=== PATIENT | male | born 1955 | race Two or more races ===

== ENCOUNTER 2020-03-26 07:18 | Outpatient (REF) | payer OTHER, SELFPAY ==
[2020-03-26 07:51] LABS: MANUAL DIFF FLAG NO
[2020-03-26 07:53] LABS: Basophils Percent Auto 0.7 % (0-2); Eosinophils Absolute Auto 0.1 X10*3/uL (0.0-0.4); Eosinophils Percent Auto 1.5 % (0-4); Hematocrit 46.6 % (42-52); Hemoglobin 15.7 g/dl (14.0-18.0); Lymphocytes Absolute Auto 1.9 X10*3/uL (1.2-4.9); Lymphocytes Percent Auto 46.9 % (20-40); Mean Corpuscular HGB Conc 33.7 g/dl (31.0-36.0); Mean Corpuscular Hemoglobin 31.7 pg (27.0-33.0); Mean Corpuscular Volume 94.1 fL (80-98); Mean Platelet Volume 10.2 fL (9.4-12.4); Monocytes Absolute Auto 0.3 X10*3/uL (0.1-1.2); Monocytes Percent Auto 7.5 % (2-11); Neutrophils Absolute Auto 1.7 X10*3/uL (2.0-8.3); Neutrophils Percent Auto 43.4 % (45-73); Platelet Count 189 X10*3/uL (160-400); Red Blood Count 4.95 X10*6/uL (4.60-5.80); Red Cell Distribution Width 12.7 % (11.0-16.0)
[2020-03-26 09:30] LABS: Alanine Aminotransferase 13 U/L (0-40); Albumin Level 4.6 g/dL (3.5-5.0); Alkaline Phosphatase 81 U/L (39-117); Anion Gap 11 (12-20); Aspartate Amino Transferase 17 U/L (5-37); Bilirubin Total 0.5 mg/dL (0.0-1.0); Blood Urea Nitrogen 19 mg/dL (9-16); Calcium 9.4 mg/dL (8.4-10.2); Carbon Dioxide 31 mmol/L (22-29); Chloride 104 mmol/L (96-108); Cholesterol 164 mg/dL; Estimated Glomerular Filt Rate > 60; Glucose Fasting 106 mg/dL (60-99); HDL Cholesterol 52 mg/dL; LDL Cholesterol Calculated 98 mg/dl; Potassium 4.6 mmol/l (3.3-5.1); Sodium 141 mmol/L (135-145); Total Protein 7.3 g/dL (6.5-8.0); Triglycerides 73 mg/dL
[2020-03-26 10:03] LABS: Prostate Specific Antigen 2.32 ng/mL (<0.05-4.0)
== END 2020-03-26 07:19 | disposition home or self-care (01) ==
LOC: HO.LAB 07:18
PROVIDERS: PCP Internal Medicine Medical Oncology; Visit Provider Internal Medicine Medical Oncology
DX: I10 Essential (primary) hypertension (principal); E78.5 Hyperlipidemia, unspecified; E66.3 Overweight
CPT/HCPCS: 36415; 80053; 80061; 84153; 85025

== ENCOUNTER 2020-06-26 07:07 | Outpatient (REF) | payer OTHER, SELFPAY ==
[2020-06-26 07:50] LABS: MANUAL DIFF FLAG NO
[2020-06-26 07:53] LABS: Hematocrit 47.2 % (42-52); Hemoglobin 15.8 g/dl (14.0-18.0); Imm Gran Abs Auto 0.01 X10*3/uL (0.00-0.03); Imm Gran Pct Auto 0.2 % (0.0-0.4); Lymphocytes Absolute Auto 1.5 X10*3/uL (1.2-4.9); Lymphocytes Percent Auto 37.2 % (20-40); Mean Corpuscular HGB Conc 33.5 g/dl (31.0-36.0); Mean Corpuscular Hemoglobin 31.3 pg (27.0-33.0); Mean Corpuscular Volume 93.7 fL (80-98); Mean Platelet Volume 10.4 fL (9.4-12.4); Monocytes Absolute Auto 0.6 X10*3/uL (0.1-1.2); Monocytes Percent Auto 15.5 % (2-11); Neutrophils Absolute Auto 1.8 X10*3/uL (2.0-8.3); Neutrophils Percent Auto 45.1 % (45-73); Platelet Count 161 X10*3/uL (160-400); Red Blood Count 5.04 X10*6/uL (4.60-5.80); Red Cell Distribution Width 12.6 % (11.0-16.0)
[2020-06-26 08:24] LABS: Alanine Aminotransferase 15 U/L (0-40); Albumin Level 4.5 g/dL (3.5-5.0); Alkaline Phosphatase 85 U/L (39-117); Anion Gap 13 (12-20); Aspartate Amino Transferase 18 U/L (5-37); Bilirubin Total 0.8 mg/dL (0.0-1.0); Blood Urea Nitrogen 18 mg/dL (9-16); Calcium 9.3 mg/dL (8.4-10.2); Carbon Dioxide 29 mmol/L (22-29); Chloride 104 mmol/L (96-108); Cholesterol 171 mg/dL; Estimated Glomerular Filt Rate > 60; Glucose Fasting 123 mg/dL (60-99); HDL Cholesterol 46 mg/dL; LDL Cholesterol Calculated 101 mg/dl; Potassium 4.5 mmol/L (3.3-5.1); Sodium 141 mmol/L (135-145); Total Protein 7.2 g/dL (6.5-8.0); Triglycerides 122 mg/dL
== END 2020-06-26 07:08 | disposition home or self-care (01) ==
LOC: HO.LAB 07:07
PROVIDERS: Visit Provider Internal Medicine Medical Oncology
DX: I10 Essential (primary) hypertension (principal); E78.5 Hyperlipidemia, unspecified; E66.3 Overweight
CPT/HCPCS: 36415; 80053; 80061; 85025

== ENCOUNTER 2020-10-17 11:25 | Emergency (ER) | payer OTHER, SELFPAY ==
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
[2020-10-17 11:30] VITALS: BP 163/92; PULSE 86; RESP 18; TEMP 36.6; O2SAT 98; BMI 28.8
[2020-10-17 13:09] VITALS: BP 151/94; PULSE 77; RESP 18; O2SAT 99
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
== END 2020-10-17 14:15 | disposition home or self-care (01) ==
PROVIDERS: Emergency Provider Emergency Medicine; PCP Internal Medicine Medical Oncology
DX: M79.602 Pain in left arm (principal); Z79.899 Other long term (current) drug therapy
CPT/HCPCS: 73030; 99283; 99284

== ENCOUNTER 2021-02-04 08:29 | Outpatient (REF) | payer OTHER, SELFPAY ==
[2021-02-04 08:39] LABS: MANUAL DIFF FLAG NO
[2021-02-04 10:00] LABS: Basophils Percent Auto 1.1 % (0-2); Eosinophils Absolute Auto 0.1 X10*3/uL (0.0-0.4); Eosinophils Percent Auto 1.6 % (0-4); Hematocrit 48.2 % (42.0-52.0); Hemoglobin 16.1 g/dl (14.0-18.0); Imm Gran Abs Auto 0.01 X10*3/uL (0.00-0.03); Imm Gran Pct Auto 0.3 % (0.0-0.4); Mean Corpuscular HGB Conc 33.4 g/dl (31.0-36.0); Mean Corpuscular Hemoglobin 31.4 pg (27.0-33.0); Mean Platelet Volume 10.8 fL (9.4-12.4); Monocytes Absolute Auto 0.3 X10*3/uL (0.1-1.2); Monocytes Percent Auto 9.1 % (2-11); Neutrophils Absolute Auto 1.4 x10*3/uL (2.0-8.3); Neutrophils Percent Auto 35.9 % (45-73); Platelet Count 186 X10*3/uL (160-400); Red Blood Count 5.13 X10*6/uL (4.60-5.80); Red Cell Distribution Width 12.3 % (11.0-16.0); White Blood Count 3.8 X10*3/uL (4.8-10.8)
[2021-02-04 10:31] LABS: Alanine Aminotransferase 14 U/L (0-40); Albumin Level 4.5 g/dL (3.5-5.0); Alkaline Phosphatase 84 U/L (39-117); Anion Gap 11 (12-20); Aspartate Amino Transferase 17 U/L (5-37); Bilirubin Total 0.7 mg/dL (0.0-1.0); Blood Urea Nitrogen 16 mg/dL (9-16); Calcium 9.7 mg/dL (8.4-10.2); Carbon Dioxide 29 mmol/L (22-29); Chloride 106 mmol/L (96-108); Cholesterol 168 mg/dL; Estimated Glomerular Filt Rate > 60; Glucose Fasting 115 mg/dL (60-99); HDL Cholesterol 49 mg/dL; LDL Cholesterol Calculated 99 mg/dl; Sodium 142 mmol/L (135-145); Total Protein 7.4 g/dL (6.5-8.0); Triglycerides 101 mg/dL
== END 2021-02-04 08:30 | disposition home or self-care (01) ==
LOC: HO.LAB 08:29
PROVIDERS: PCP Internal Medicine Medical Oncology; Visit Provider Internal Medicine Medical Oncology
DX: I10 Essential (primary) hypertension (principal); E78.5 Hyperlipidemia, unspecified; E66.3 Overweight
CPT/HCPCS: 36415; 80053; 80061; 85025

== ENCOUNTER 2021-07-08 09:24 | Day surgery (SDC) | payer OTHER, SELFPAY ==
[2021-07-04 10:32] VITALS: BMI 28.0
--- NOTE | 2021-07-07 08:31 | P.CONAN_ITS ---
Documented by User: Kiarra Hay NP 07/07/21 08:32 HPI - Anesthesia Eval Consult details Narrative: 66yo F for Colonoscopy [facility] Past Medical History Medical History High cholesterol HTN (hypertension) Surgical History Surgical History H/O colonoscopy Hx of tonsillectomy Social History Social History Alcohol intake: never Patient Tobacco Use Status: Former Tobacco user Are you DNR?: No Advance Directives: No Advance Directives Information Provided: Yes Nutrition Risks: No Nutritional Risk Meds Allergies Allergy/AdvReac Type Severity Reaction Status Date / Time No Known Allergies Allergy Verified 10/17/20 11:29 Home Medications Medication Instructions Recorded Confirmed Last Taken Type aspirin 81 mg tablet,delayed 81 mg PO DAILY 07/04/21 07/04/21 06/22/21 History release hydrochlorothiazide 12.5 mg capsule 1 cap PO QAM 07/04/21 07/04/21 Unknown History losartan 50 mg tablet 1 tab PO DAILY 07/04/21 07/04/21 07/08/21 History omega 7-nms-ddt-fish oil 1,000 mg 1 cap PO BID 07/04/21 07/08/21 06/22/21 History (120 mg-180 mg) capsule (Fish Oil) simvastatin 40 mg tablet 1 tab PO QPM 07/04/21 07/04/21 Unknown History Exam Exam Date and Time: July 07, 2021 0831 Height,Weight and Vital Signs: Height 5 ft 9.5 in Weight 87.543 kg Pertinent Lab Results Pertinent Lab Results: Laboratory Tests 02/04/21 02/04/21 08:36 08:36 WBC 3.8 L Hgb 16.1 Hct 48.2 Plt Count 186 Sodium 142 Potassium 4.0 Chloride 106 Carbon Dioxide 29 BUN 16 Creatinine 0.90 Assessment and Plan Assessment Anesthesia Assessment: Chart Reviewed Documented by User: Niharika Duarte MD 07/08/21 11:07 [facility] Past Medical History Medical History High cholesterol HTN (hypertension) Family History Family history of problems with anesthesia: No Surgical History Surgical History H/O colonoscopy Hx of tonsillectomy History of Problems with Anesthesia: No Social History Social History Alcohol intake: never Patient Tobacco Use Status: Former Tobacco user Are you DNR?: No Advance Directives: No Advance Directives Information Provided: Yes Nutrition Risks: No Nutritional Risk Meds Allergies Allergy/AdvReac Type Severity Reaction Status Date / Time No Known Allergies Allergy Verified 10/17/20 11:29 Home Medications Medication Instructions Recorded Confirmed Last Taken Type aspirin 81 mg tablet,delayed 81 mg PO DAILY 07/04/21 07/04/21 06/22/21 History release hydrochlorothiazide 12.5 mg capsule 1 cap PO QAM 07/04/21 07/04/21 Unknown History losartan 50 mg tablet 1 tab PO DAILY 07/04/21 07/04/21 07/08/21 History omega 6-scw-cap-fish oil 1,000 mg 1 cap PO BID 07/04/21 07/08/21 06/22/21 History (120 mg-180 mg) capsule (Fish Oil) simvastatin 40 mg tablet 1 tab PO QPM 07/04/21 07/04/21 Unknown History Exam Height,Weight and Vital Signs: Height 5 ft 9.5 in Weight 87.543 kg Vital Signs Temp Pulse Resp BP Pulse Ox 07/08/21 10:15 143/94 H 07/08/21 09:40 98.3 F 89 18 174/100 H 98 Airway Mallampati Class: II TM Dist: >3cm Neck ROM: Full Loose/Missing/Broken Teeth: No Heart: RRR Lungs: CTAB Assessment and Plan Assessment Anesthesia Assessment: Anesthesia Plan Discussed Final Anesthetic Review Family History of Problems with Anesthesia: No History of Problems with Anesthesia: No NPO: Yes ASA Class: II Final Preanesthetic Review: No Changes in Pt Med Stat, Meds/Allgs Chart Reviewed, Consent Obtained/Reviewed and Anes Risks/Benef Reviewed Patient Risk: Low Procedure Risk: Low Assessment/Block/Sedation in SS: Assess/Block/Sedation-SS Anesthetic Plan Anesthetic Plan: MAC: Disposition: Standard PACU
[2021-07-08 09:40] VITALS: BP 174/100; PULSE 89; RESP 18; TEMP 36.8; O2SAT 98
[2021-07-08] MEDS: Lactated Ringers 1,000 ML 100 ML IVCONT (10:13)
[2021-07-08 10:15] VITALS: BP 143/94
[2021-07-08 12:38] VITALS: BP 118/70; PULSE 80; RESP 16; TEMP 37.1; O2SAT 96
--- NOTE | 2021-07-08 12:43 | PM.OP ---
Brief Operative Note Date of Service: 07/08/21 Pre-op diagnosis: Screening Post-op diagnosis: other (Colon polyps) Procedure: Colonoscopy to cecum and TI with hot snare polypectomy, cold snare polypectomy at 50cm, and bx/removal of polyp in transverse colon Surgeon: Blu Willis Anesthesia: MAC Was an Real Estate Loan Officer used for this Procedure?: No Estimated blood loss (mL): 2.0 Pathology: other (A. Transverse colon polyp B. Ascending colon polyps C. Polyps at 60cm) Condition: stable Disposition: PACU
[2021-07-08 12:53] VITALS: BP 141/87; PULSE 70; RESP 18; O2SAT 99
[2021-07-08 13:08] VITALS: BP 154/94; PULSE 70; RESP 20; TEMP 37.2; O2SAT 100
--- NOTE | 2021-07-09 00:15 | OP_ITS ---
SURGEON: Blu Willis MD INDICATIONS: The patient presents for evaluation of colorectal cancer screening and personal history of tubular adenomas of the colon. Full consent has been obtained from him for this, including risks of bleeding and perforation. PREOPERATIVE DIAGNOSIS: POSTOPERATIVE DIAGNOSIS: PROCEDURE PERFORMED: Colonoscopy to the cecum and terminal ileum with hot snare polypectomy, cold snare polypectomy, and biopsy removal of polyp. ESTIMATED BLOOD LOSS: COMPLICATIONS: ANESTHESIA: ASSISTANTS: SPECIMENS: PREOPERATIVE DIAGNOSES: Personal history of tubular adenoma of the colon, colorectal cancer screening. POSTOPERATIVE DIAGNOSES: Personal history of tubular adenoma of the colon, colorectal cancer screening, colon polyps, diverticulosis and internal hemorrhoids. PREP MEDICATION USED: Monitored anesthesia care. DESCRIPTION OF PROCEDURE: The patient was placed in the left lateral decubitus position. The digital rectal exam revealed no abnormalities. The Olympus video pediatric colonoscope was then entered into the rectum and advanced easily to the cecum. Once in the cecum, I did identify normal-appearing cecal pouch with appendiceal orifice and a normal-appearing ileocecal valve. The terminal ileum was cannulated and appeared normal. The scope was withdrawn back in the colon. The entire cecum and ileocecal valve appeared normal. The scope was slowly withdrawn assessing all mucosal surfaces carefully. Preparation was excellent. In the ascending colon, there were 2 polyps. One was approximately 10-12 mm in diameter and was removed by hot snare polypectomy and recovered by suction. The other polyp was approximately 8 mm in diameter and removed by hot snare polypectomy and recovered by suction. Both polypectomy sites appeared clean, without any sign of residual polyp nor bleeding. In the transverse colon was an approximately 4 mm polyp, which was removed completely with the cold biopsy forceps. At 60 cm were 2 polyps. One was approximately 5 mm in diameter and was removed by cold snare polypectomy. The other polyp was approximately 8 mm in diameter and was removed by hot snare polypectomy. Both polyps were recovered by suction. The polypectomy site was appeared clean, without any sign of residual polyp nor bleeding. I did not visualize any other polyps, colitis, nor angiodysplasia. There was a moderate amount of sigmoid diverticulosis. In the rectum, the scope was retroflexed visualizing internal hemorrhoids, but no other pathology. The rectal mucosa appeared normal. Scope was straightened and withdrawn from the patient. He tolerated the procedure well and was returned to the recovery area in stable condition. IMPRESSION: 1. Colon polyps. 2. Diverticulosis. 3. Internal hemorrhoids. PLAN: The results of the pathology will be checked. I would recommend a repeat colonoscopy in 5 years for further surveillance. He was advised not to use any aspirin, NSAIDs, nor fish oil for 1 week. MD MICHAEL Valdez/BRITTANY / [phone]
== END 2021-07-08 13:30 | disposition home or self-care (01) ==
PROVIDERS: PCP Internal Medicine Medical Oncology; Visit Provider Internal Medicine
PROC: 0DJD8ZZ Inspection of Lower Intestinal Tract, Via Natural or Artificial Opening Endoscopic (ICD-10-PCS; CPT 45378; principal; 2021-07-08 10:50)
DX: Z12.11 Encounter for screening for malignant neoplasm of colon (principal); Z86.010 Personal history of colon polyps; D12.2 Benign neoplasm of ascending colon; D12.4 Benign neoplasm of descending colon; K63.5 Polyp of colon; K57.30 Diverticulosis of large intestine without perforation or abscess without bleeding; K64.8 Other hemorrhoids; I10 Essential (primary) hypertension; E78.5 Hyperlipidemia, unspecified; Z79.82 Long term (current) use of aspirin; Z79.899 Other long term (current) drug therapy
CPT/HCPCS: 45385; 45380; 88305

== ENCOUNTER 2021-08-05 08:01 | Outpatient (REF) | payer OTHER, SELFPAY ==
[2021-08-05 08:28] LABS: MANUAL DIFF FLAG NO
[2021-08-05 08:59] LABS: Basophils Percent Auto 0.6 % (0-2); Eosinophils Absolute Auto 0.1 X10*3/uL (0.0-0.4); Eosinophils Percent Auto 1.4 % (0-4); Hematocrit 46.2 % (42.0-52.0); Hemoglobin 15.7 g/dl (14.0-18.0); Lymphocytes Absolute Auto 2.1 X10*3/uL (1.2-4.9); Mean Corpuscular Hemoglobin 31.8 pg (27.0-33.0); Mean Corpuscular Volume 93.5 fL (80.0-98.0); Mean Platelet Volume 10.5 fL (9.4-12.4); Monocytes Absolute Auto 0.3 X10*3/uL (0.1-1.2); Monocytes Percent Auto 8.3 % (2-11); Neutrophils Absolute Auto 1.1 x10*3/uL (2.0-8.3); Neutrophils Percent Auto 30.7 % (45-73); Platelet Count 160 X10*3/uL (160-400); Red Blood Count 4.94 X10*6/uL (4.60-5.80); Red Cell Distribution Width 12.5 % (11.0-16.0); White Blood Count 3.5 X10*3/uL (4.8-10.8)
[2021-08-05 09:28] LABS: Alanine Aminotransferase 13 U/L (0-40); Albumin Level 4.4 g/dL (3.5-5.0); Alkaline Phosphatase 72 U/L (39-117); Anion Gap 12 (12-20); Aspartate Amino Transferase 15 U/L (5-37); Blood Urea Nitrogen 12 mg/dL (9-16); Calcium 9.9 mg/dL (8.4-10.2); Carbon Dioxide 28 mmol/L (22-29); Chloride 105 mmol/L (96-108); Cholesterol 168 mg/dL; Estimated Glomerular Filt Rate > 60; Glucose Fasting 109 mg/dL (60-99); HDL Cholesterol 49 mg/dL; LDL Cholesterol Calculated 95 mg/dl; Potassium 4.6 mmol/L (3.3-5.1); Sodium 140 mmol/L (135-145); Total Protein 7.2 g/dL (6.5-8.0); Triglycerides 121 mg/dL
[2021-08-05 09:39] LABS: Prostate Specific Antigen 1.01 ng/mL (<0.05-4.0)
== END 2021-08-05 08:02 | disposition home or self-care (01) ==
LOC: HO.LAB 08:01
PROVIDERS: PCP Internal Medicine Medical Oncology; Visit Provider Internal Medicine Medical Oncology
DX: D72.819 Decreased white blood cell count, unspecified (principal); E78.5 Hyperlipidemia, unspecified; E66.3 Overweight; Z12.5 Encounter for screening for malignant neoplasm of prostate
CPT/HCPCS: 36415; 80053; 80061; 84153; 85025

== ENCOUNTER 2021-12-03 08:28 | Outpatient (REF) | payer OTHER, SELFPAY ==
[2021-12-03 08:47] LABS: MANUAL DIFF FLAG NO
[2021-12-03 09:23] LABS: Basophils Absolute Auto 0.1 X10*3/uL (0.0-0.2); Basophils Percent Auto 1.4 % (0-2); Eosinophils Percent Auto 1.1 % (0-4); Hematocrit 45.8 % (42.0-52.0); Hemoglobin 15.7 g/dl (14.0-18.0); Lymphocytes Absolute Auto 1.7 X10*3/uL (1.2-4.9); Lymphocytes Percent Auto 49.1 % (20-40); Mean Corpuscular HGB Conc 34.3 g/dl (31.0-36.0); Mean Corpuscular Hemoglobin 32.2 pg (27.0-33.0); Mean Corpuscular Volume 93.9 fL (80.0-98.0); Mean Platelet Volume 11.2 fL (9.4-12.4); Monocytes Absolute Auto 0.3 X10*3/uL (0.1-1.2); Neutrophils Absolute Auto 1.4 x10*3/uL (2.0-8.3); Neutrophils Percent Auto 40.4 % (45-73); Platelet Count 173 X10*3/uL (160-400); Red Blood Count 4.88 X10*6/uL (4.60-5.80); Red Cell Distribution Width 12.3 % (11.0-16.0); White Blood Count 3.5 X10*3/uL (4.8-10.8)
[2021-12-03 09:54] LABS: Alanine Aminotransferase 14 U/L (0-40); Albumin Level 4.5 g/dL (3.5-5.0); Alkaline Phosphatase 73 U/L (39-117); Anion Gap 14 (12-20); Aspartate Amino Transferase 17 U/L (5-37); Bilirubin Total 0.6 mg/dL (0.0-1.0); Blood Urea Nitrogen 17 mg/dL (9-16); Calcium 9.4 mg/dL (8.4-10.2); Carbon Dioxide 27 mmol/L (22-29); Chloride 106 mmol/L (96-108); Cholesterol 169 mg/dL; Estimated Glomerular Filt Rate > 60; Glucose Fasting 107 mg/dL (60-99); HDL Cholesterol 50 mg/dL; LDL Cholesterol Calculated 99 mg/dl; Potassium 4.6 mmol/L (3.3-5.1); Sodium 142 mmol/L (135-145); Total Protein 7.2 g/dL (6.5-8.0); Triglycerides 101 mg/dL
[2021-12-07 14:47] LABS: Neutrophil Cyto Ab Screen NEGATIVE (NEGATIVE)
== END 2021-12-03 08:29 | disposition home or self-care (01) ==
LOC: HO.LAB 08:28
PROVIDERS: PCP Internal Medicine Medical Oncology; Visit Provider Internal Medicine Medical Oncology
DX: D72.819 Decreased white blood cell count, unspecified (principal); E78.5 Hyperlipidemia, unspecified; E66.3 Overweight
CPT/HCPCS: 36415; 80053; 80061; 85025; 86036; 86037

== ENCOUNTER 2022-04-15 08:07 | Outpatient (REF) | payer OTHER, SELFPAY ==
[2022-04-15 08:19] LABS: MANUAL DIFF FLAG NO
[2022-04-15 08:31] LABS: Basophils Percent Auto 0.8 % (0-2); Hematocrit 46.4 % (42.0-52.0); Hemoglobin 15.7 g/dl (14.0-18.0); Lymphocytes Absolute Auto 1.8 X10*3/uL (1.2-4.9); Lymphocytes Percent Auto 45.5 % (20-40); Mean Corpuscular HGB Conc 33.8 g/dl (31.0-36.0); Mean Corpuscular Hemoglobin 31.9 pg (27.0-33.0); Mean Corpuscular Volume 94.3 fL (80.0-98.0); Mean Platelet Volume 10.6 fL (9.4-12.4); Monocytes Absolute Auto 0.4 X10*3/uL (0.1-1.2); Monocytes Percent Auto 9.3 % (2-11); Neutrophils Absolute Auto 1.7 x10*3/uL (2.0-8.3); Neutrophils Percent Auto 43.4 % (45-73); Platelet Count 176 X10*3/uL (160-400); Red Blood Count 4.92 X10*6/uL (4.60-5.80); Red Cell Distribution Width 12.3 % (11.0-16.0); White Blood Count 3.9 X10*3/uL (4.8-10.8)
[2022-04-15 09:05] LABS: Alanine Aminotransferase 15 U/L (0-40); Albumin Level 4.5 g/dL (3.5-5.0); Alkaline Phosphatase 71 U/L (39-117); Anion Gap 14 (12-20); Aspartate Amino Transferase 17 U/L (5-37); Blood Urea Nitrogen 21 mg/dL (9-16); Calcium 9.7 mg/dL (8.4-10.2); Carbon Dioxide 27 mmol/L (22-29); Chloride 106 mmol/L (96-108); Cholesterol 163 mg/dL; Estimated Glomerular Filt Rate > 60; Glucose Fasting 121 mg/dL (60-99); HDL Cholesterol 53 mg/dL; LDL Cholesterol Calculated 96 mg/dl; Potassium 4.7 mmol/L (3.3-5.1); Sodium 142 mmol/L (135-145); Total Protein 7.1 g/dL (6.5-8.0); Triglycerides 70 mg/dL
== END 2022-04-15 08:08 | disposition home or self-care (01) ==
LOC: HO.LAB 08:07
PROVIDERS: PCP Internal Medicine Medical Oncology; Visit Provider Internal Medicine Medical Oncology
DX: Z12.5 Encounter for screening for malignant neoplasm of prostate (principal); D72.819 Decreased white blood cell count, unspecified; E78.5 Hyperlipidemia, unspecified; N40.0 Benign prostatic hyperplasia without lower urinary tract symptoms
CPT/HCPCS: 36415; 80053; 80061; 84153; 85025

== ENCOUNTER 2022-07-14 09:24 | Outpatient (REF) | payer OTHER, SELFPAY ==
[2022-07-14 09:40] LABS: MANUAL DIFF FLAG NO
[2022-07-14 09:49] LABS: Basophils Percent Auto 0.7 % (0-2); Eosinophils Absolute Auto 0.1 X10*3/uL (0.0-0.4); Eosinophils Percent Auto 1.7 % (0-4); Hematocrit 44.4 % (42.0-52.0); Hemoglobin 15.3 g/dl (14.0-18.0); Imm Gran Abs Auto 0.01 X10*3/uL (0.00-0.03); Imm Gran Pct Auto 0.2 % (0.0-0.4); Mean Corpuscular HGB Conc 34.5 g/dl (31.0-36.0); Mean Corpuscular Hemoglobin 32.3 pg (27.0-33.0); Mean Corpuscular Volume 93.9 fL (80.0-98.0); Monocytes Absolute Auto 0.4 X10*3/uL (0.1-1.2); Monocytes Percent Auto 8.3 % (2-11); Neutrophils Absolute Auto 1.8 x10*3/uL (2.0-8.3); Neutrophils Percent Auto 42.1 % (45-73); Platelet Count 169 X10*3/uL (160-400); Red Blood Count 4.73 X10*6/uL (4.60-5.80); Red Cell Distribution Width 12.3 % (11.0-16.0); White Blood Count 4.2 X10*3/uL (4.8-10.8)
[2022-07-14 10:14] LABS: Alanine Aminotransferase 13 U/L (0-40); Albumin Level 4.2 g/dL (3.5-5.0); Alkaline Phosphatase 70 U/L (39-117); Anion Gap 8 (12-20); Aspartate Amino Transferase 16 U/L (5-37); Bilirubin Total 0.7 mg/dL (0.0-1.0); Blood Urea Nitrogen 17 mg/dL (9-16); Carbon Dioxide 28 mmol/L (22-29); Chloride 110 mmol/L (96-108); Cholesterol 156 mg/dL; Estimated Glomerular Filt Rate > 60; Glucose Random 107 mg/dL (60-115); HDL Cholesterol 51 mg/dL; LDL Cholesterol Calculated 92 mg/dl; Potassium 4.1 mmol/L (3.3-5.1); Sodium 142 mmol/L (135-145); Total Protein 6.6 g/dL (6.5-8.0); Triglycerides 67 mg/dL
== END 2022-07-14 09:25 | disposition home or self-care (01) ==
LOC: HO.LAB 09:24
PROVIDERS: PCP Internal Medicine Medical Oncology; Visit Provider Internal Medicine Medical Oncology
DX: I10 Essential (primary) hypertension (principal); E78.5 Hyperlipidemia, unspecified; D72.819 Decreased white blood cell count, unspecified
CPT/HCPCS: 36415; 80053; 80061; 85025

== ENCOUNTER 2022-11-17 09:30 | Outpatient (REF) | payer OTHER, SELFPAY ==
[2022-11-17 09:44] LABS: MANUAL DIFF FLAG NO
[2022-11-17 10:01] LABS: Basophils Percent Auto 0.8 % (0-2); Eosinophils Absolute Auto 0.1 X10*3/uL (0.0-0.4); Eosinophils Percent Auto 1.3 % (0-4); Hematocrit 44.6 % (42.0-52.0); Hemoglobin 15.2 g/dl (14.0-18.0); Lymphocytes Absolute Auto 2.2 X10*3/uL (1.2-4.9); Lymphocytes Percent Auto 55.7 % (20-40); Mean Corpuscular HGB Conc 34.1 g/dl (31.0-36.0); Mean Corpuscular Hemoglobin 31.9 pg (27.0-33.0); Mean Corpuscular Volume 93.7 fL (80.0-98.0); Mean Platelet Volume 10.4 fL (9.4-12.4); Monocytes Absolute Auto 0.3 X10*3/uL (0.1-1.2); Monocytes Percent Auto 8.1 % (2-11); Neutrophils Absolute Auto 1.3 x10*3/uL (2.0-8.3); Neutrophils Percent Auto 34.1 % (45-73); Platelet Count 160 X10*3/uL (160-400); Red Blood Count 4.76 X10*6/uL (4.60-5.80); Red Cell Distribution Width 12.3 % (11.0-16.0); White Blood Count 3.9 X10*3/uL (4.8-10.8)
[2022-11-17 11:22] LABS: Alanine Aminotransferase 10 U/L (0-40); Albumin Level 4.3 g/dL (3.5-5.0); Alkaline Phosphatase 67 U/L (39-117); Anion Gap 12 (12-20); Aspartate Amino Transferase 14 U/L (5-37); Bilirubin Total 0.7 mg/dL (0.0-1.0); Blood Urea Nitrogen 20 mg/dL (9-16); Calcium 9.3 mg/dL (8.4-10.2); Carbon Dioxide 28 mmol/L (22-29); Chloride 107 mmol/L (96-108); Cholesterol 157 mg/dL (<200); Estimated Glomerular Filt Rate > 60; Glucose Random 106 mg/dL (60-115); HDL Cholesterol 53 mg/dL (>40); LDL Cholesterol Calculated 87 mg/dL (<100); Sodium 143 mmol/L (135-145); Total Protein 6.9 g/dL (6.5-8.0); Triglycerides 89 mg/dL (<150)
[2022-11-20 11:19] LABS: Free Prostate Spec Ag 0.5 ng/mL; Percent Free Prostate Spec Ag 50 % (calc) (>25)
== END 2022-11-17 09:31 | disposition home or self-care (01) ==
LOC: HO.LAB 09:30
PROVIDERS: PCP Internal Medicine Medical Oncology; Visit Provider Internal Medicine Medical Oncology
DX: Z00.00 Encounter for general adult medical examination without abnormal findings (principal); Z12.5 Encounter for screening for malignant neoplasm of prostate; D72.819 Decreased white blood cell count, unspecified; E78.5 Hyperlipidemia, unspecified; I10 Essential (primary) hypertension
CPT/HCPCS: 36415; 80053; 80061; 84154; 85025

== ENCOUNTER 2022-11-24 10:49 | Outpatient (REF) | payer OTHER, SELFPAY ==
--- NOTE | ~2022-11-24 | XR_ITS ---
EXAMINATION: XR LUMBOSACRAL SPINE WITH OBLIQUES CLINICAL INFORMATION: Left leg pain COMPARISON: None available. TECHNIQUE: 5 views of the lumbar spine FINDINGS: 5 nonrib-bearing lumbar-type vertebral bodies. No acute visible fracture or dislocation. Moderate multilevel degenerative changes greatest at L1-L2 with robust anterior osteophyte, disc space narrowing, and lower lumbar spine facet arthropathy. Vertebral body heights and disc spaces are otherwise maintained. Posterior elements are intact. Paraspinal soft tissues are unremarkable visualized bowel gas is unremarkable. Pelvic phleboliths are noted. XR/XR lumbar spine 4V min IMPRESSION: 1. No acute visible fracture or dislocation. 2. Moderate multilevel degenerative changes greatest at L1-L2.
== END 2022-11-24 10:50 | disposition home or self-care (01) ==
LOC: HO.XRAY 10:49
PROVIDERS: PCP Internal Medicine Medical Oncology; Visit Provider Internal Medicine Medical Oncology
DX: M79.605 Pain in left leg (principal); M47.816 Spondylosis without myelopathy or radiculopathy, lumbar region
CPT/HCPCS: 72110

== ENCOUNTER 2023-07-28 07:32 | Outpatient (REF) | payer OTHER, SELFPAY ==
[2023-07-28 07:52] LABS: MANUAL DIFF FLAG NO
[2023-07-28 08:42] LABS: Basophils Percent Auto 0.6 % (0-2); Eosinophils Absolute Auto 0.1 X10*3/uL (0.0-0.4); Eosinophils Percent Auto 1.6 % (0-4); Hematocrit 45.9 % (42.0-52.0); Hemoglobin 15.6 g/dl (14.0-18.0); Imm Gran Abs Auto 0.01 X10*3/uL (0.00-0.03); Imm Gran Pct Auto 0.3 % (0.0-0.4); Lymphocytes Absolute Auto 1.7 X10*3/uL (1.2-4.9); Lymphocytes Percent Auto 54.6 % (20-40); Mean Corpuscular Volume 94.3 fL (80.0-98.0); Mean Platelet Volume 10.5 fL (9.4-12.4); Monocytes Absolute Auto 0.3 X10*3/uL (0.1-1.2); Monocytes Percent Auto 8.5 % (2-11); Neutrophils Absolute Auto 1.1 x10*3/uL (2.0-8.3); Neutrophils Percent Auto 34.4 % (45-73); Platelet Count 170 X10*3/uL (160-400); Red Blood Count 4.87 X10*6/uL (4.60-5.80); Red Cell Distribution Width 12.4 % (11.0-16.0); White Blood Count 3.2 X10*3/uL (4.8-10.8)
[2023-07-28 09:23] LABS: Alanine Aminotransferase 14 U/L (0-40); Albumin Level 4.3 g/dL (3.5-5.0); Alkaline Phosphatase 76 U/L (39-117); Anion Gap 12 (12-20); Aspartate Amino Transferase 16 U/L (5-37); Bilirubin Total 0.7 mg/dL (0.0-1.0); Blood Urea Nitrogen 17 mg/dL (9-16); Calcium 9.5 mg/dL (8.4-10.2); Carbon Dioxide 29 mmol/L (22-29); Chloride 106 mmol/L (96-108); Cholesterol 146 mg/dL (<200); Estimated Glomerular Filt Rate > 60; Glucose Fasting 110 mg/dL (60-99); HDL Cholesterol 48 mg/dL (>40); LDL Cholesterol Calculated 80 mg/dL (<100); Sodium 143 mmol/L (135-145); Total Protein 7.1 g/dL (6.5-8.0); Triglycerides 94 mg/dL (<150)
[2023-07-28 09:42] LABS: Prostate Specific Antigen 1.24 ng/mL (<0.05-4.0)
== END 2023-07-28 07:33 | disposition home or self-care (01) ==
LOC: HO.LAB 07:32
PROVIDERS: PCP Internal Medicine Medical Oncology; Visit Provider Internal Medicine Medical Oncology
DX: Z12.5 Encounter for screening for malignant neoplasm of prostate (principal); N40.0 Benign prostatic hyperplasia without lower urinary tract symptoms; E66.3 Overweight; E78.5 Hyperlipidemia, unspecified
CPT/HCPCS: 36415; 80053; 80061; 84153; 85025

== ENCOUNTER 2024-03-22 07:37 | Outpatient (REF) | payer OTHER, SELFPAY ==
[2024-03-22 07:49] LABS: MANUAL DIFF FLAG NO
[2024-03-22 09:35] LABS: Basophils Percent Auto 1.1 % (0-2); Eosinophils Absolute Auto 0.1 X10*3/uL (0.0-0.4); Eosinophils Percent Auto 1.7 % (0-4); Hematocrit 46.3 % (42.0-52.0); Imm Gran Abs Auto 0.01 X10*3/uL (0.00-0.03); Imm Gran Pct Auto 0.3 % (0.0-0.4); Lymphocytes Absolute Auto 1.7 X10*3/uL (1.2-4.9); Lymphocytes Percent Auto 46.8 % (20-40); Mean Corpuscular HGB Conc 34.6 g/dl (31.0-36.0); Mean Corpuscular Volume 92.6 fL (80.0-98.0); Mean Platelet Volume 10.7 fL (9.4-12.4); Monocytes Absolute Auto 0.4 X10*3/uL (0.1-1.2); Monocytes Percent Auto 10.5 % (2-11); Neutrophils Absolute Auto 1.4 x10*3/uL (2.0-8.3); Neutrophils Percent Auto 39.6 % (45-73); Platelet Count 197 X10*3/uL (160-400); Red Cell Distribution Width 12.7 % (11.0-16.0); White Blood Count 3.6 X10*3/uL (4.8-10.8)
[2024-03-22 10:22] LABS: Alanine Aminotransferase 16 U/L (0-40); Albumin Level 4.6 g/dL (3.5-5.0); Alkaline Phosphatase 90 U/L (39-117); Anion Gap 10 (12-20); Aspartate Amino Transferase 21 U/L (5-37); Blood Urea Nitrogen 16 mg/dL (9-16); Calcium 9.6 mg/dL (8.4-10.2); Carbon Dioxide 29 mmol/L (22-29); Chloride 106 mmol/L (96-108); Cholesterol 172 mg/dL (<200); Estimated Glomerular Filt Rate > 60; Glucose Fasting 111 mg/dL (60-99); HDL Cholesterol 55 mg/dL (>40); LDL Cholesterol Calculated 97 mg/dL (<100); Potassium 4.1 mmol/L (3.3-5.1); Sodium 141 mmol/L (135-145); Total Protein 7.9 g/dL (6.5-8.0); Triglycerides 102 mg/dL (<150)
[2024-03-22 10:43] LABS: Prostate Specific Antigen 1.28 ng/mL (<0.05-4.0)
== END 2024-03-22 07:38 | disposition home or self-care (01) ==
LOC: HO.LAB 07:37
PROVIDERS: PCP Internal Medicine Medical Oncology; Visit Provider Internal Medicine Medical Oncology
DX: Z00.00 Encounter for general adult medical examination without abnormal findings (principal); Z12.5 Encounter for screening for malignant neoplasm of prostate; N40.0 Benign prostatic hyperplasia without lower urinary tract symptoms
CPT/HCPCS: 36415; 80053; 80061; 84153; 85025

== ENCOUNTER 2024-11-15 09:27 | Outpatient (REF) | payer OTHER, SELFPAY ==
--- OUTSIDE RECORDS SUMMARY | 2024-05-23 06:15 | XMS_ITS ---
Author Organization Blu Brandt III, MD Address [address] [place] [address] Care Team Providers Care Sap Gatherer Name Role Phone Blu Brandt Primary Care Provider Allergies Allergen (clinical drug [...] Date Provider Diagnosis Blu Brandt III, MD [address] [place] [address] [place] [address] 05/23/2024 Blu Brandt BPH (benign prostati c [...] a day Next Appt Details Provider Name:Blu Brandt, 12/02/2024 02:30:00 PM, [address] [place] [address] [address], [place], [address], Progress Notes * HEATHER MULLINSDOB:1955 (69 yo M)Acc No.[id number]:05/23/2024 Patient: HEATHER GRANDE Provider: Kaylie Brandt MD :1955 A ge:69 Y S ex:Male Date:05/23/2024 [facility], [id number] Subjective: * Chief Complaints: * R esolved [...] ocation of provider rendering services: { ...} [address] [place] [address] [address] [facility] [address] L ocation of patient: yamini ddress listed in demographics for today's visit P atient identification confirmed using: N hannah, T elehealth method: T elephone only. Patient [...] a daughter Radha. He was born in [place], [place] and has been in [place] for 34 years. He is retired. He [...] a pound per week. 4 . F ormer smoker - Z87.891 N [...] MD Date: 0 05/23/2024 Generated for Tali smith/Rissa/Madelynsmitting on: 0 11/15/2024 09:29 AM EDT History and Physical Notes * HPI (History of Present Illness) Category Sub-Category Detail Notes Telehealth Location of [facility] rendering services:: {...} [address] [place] [address] [address] [place] [address] Location of patient:: address listed in demographics [...]
--- OUTSIDE RECORDS SUMMARY | 2024-08-29 06:00 | XMS_ITS ---
Author Organization Blu Brandt III, MD Address [address] [place] [address] Care Team Providers Care Cold Reduction Roller Name Role Phone Blu Brandt Primary Care [...] Provider Speciality Internal M edicine Referred Provider [facility] [place], & [facility] ([place]) Referred Provider Specialty Dermatology General Notes Emely [...] Problem Status W/U Status Risk Notes Problem [id number] Folliculitis (L73.9) Active confirmed A second dermatological [...] Date Provider Diagnosis Blu Brandt III, MD [address] [place] [address] [address] [place] [address] 08/29/2024 Blu Brandt BPH (benign prostati c [...] Has occasional heartburn is well controlled with yxxi-kst-xmfcdpf medications. 08/29/2024 Benign cyst of left kidney [...] and Treat Scalp Folliculitis[facility] Next Appt Details Follow Up: As Scheduled, Marisabel son: Annual Exam Provider Name:Blu Rikki, 12/02/2024 02:30:00 PM, [address] [place] [address] , [address], [place], [place], [address], Progress Notes * HEATHER MULLINSDOB:1955 (69 yo M)Acc No.[id number]:08/29/2024 Progress Notes Patient: HEATHER GRANDE Provider: Kaylie Brandt MD :1955 A ge:69 Y S ex:Male Date:08/29/2024 Address: [address] [place], [id number] Subjective: * Chief Complaints: * F olliculitis of scalpLeukopeniaHyperlipidemiaHypertensionBenign prostatic hypertrophy * HPI: C OVID-19 Screening: In the past he complained of infection in his scalp and diffuse folliculitis was noted with areas of swelling. He was referred to dermatology. They have tried oral antibiotics and creams but he still has the problem. He is requesting a referral to another table cover folder for a second opinion. We have arranged [...] a daughter Radha. He was born in [place], [place] and has been in [place] [...] Has occasional heartburn is well controlled with zwgk-pwk-xroiqbl medications. 7 . B enign cyst of [...] true * Provider: Kaylie Brandt MD Date: 08/29/2024 Generated for Tali smith/Rissa/Tyleritting on: 0 11/15/2024 09:29 AM EDT History [...] [facility] Evaluate and Treat Scalp Folliculitis
--- OUTSIDE RECORDS SUMMARY | 2024-11-04 09:45 | XMS_ITS ---
Author Organization Blu Brandt III, MD Address [address] [place] [address] Care Team Providers Care Latin Professor Name Role Phone Blu Brandt Primary Care Provider [phone] Allergies Allergen (clinical drug ingredient) Drug/Non Drug [...] Problem Status W/U Status Risk Notes Problem [id number] Contusion of sole of right foot (S90.31XA) [...] Date Provider Diagnosis Blu Brandt III, MD [address] [place] [address] [place] [address] 11/04/2024 Blu Brandt BPH (benign prostati c [...] HCl 10 MG 1 tablet at be dtine as needed Orally three times a day [...] Scheduled, Marisabel son: Annual Exam Provider Name:Blu Brandt, 12/02/2024 02:30:00 PM, [address] [place] [address] , [place] [address], [place], [address], Progress Notes * HEATHER MULLINSDOB:1955 (69 yo M)Acc No.[id number]:11/04/2024 Patient: HEATHER GRANDE Provider: Kaylie Brandt MD :1955 A ge:69 Y S ex:Male Date:11/04/2024 Address: [address], [place], [id number] Subjective: * Chief Complaints: * L eft [...] and swelling on the bottom of his shot tube machine tender to touch and painful with weightbearing. [...] non-user E x-cigarette smoker amount unknown H e has a daughter Radha. He was born in [place], [place] and has been in [place] for 34 years. He is retired. He [...] MD Date: 0 11/04/2024 Generated for Tali smith/Rissa/Tyleritting on: 11/15/2024 09:30 AM EDT History and Physical Notes * [...]
--- OUTSIDE RECORDS SUMMARY | 2024-11-10 09:18 | XMS_ITS ---
Author Organization Blu Brandt III, MD Address [address] [facility] [place] [place] [address] Care Team Providers Care Looping Machine Operator Name Role Phone Blu Brandt Primary Care Provider REASON FOR VISIT Message Social History Sex Assigned At : Social History Observation Description Sex Assigned At Male Encounters Encounter Location Date Provider Diagnosis Blu Brandt III, MD [address] [place] [address] [place] [address] 11/10/2024 Blu Brandt Plan Of Treatment Next Appt Details Provider Name:Blu Brandt, 12/02/2024 02:30:00 PM, [address] [place] [address] [address], [place], [address], Progress Notes * HEATHER MULLINSDOB:1955 (69 yo M)Acc No.[id number]:11/10/2024 Patient: HEATHER GRANDE :1955 A ge:69 Y S ex:Male Address:[address] [place], [address] * true * Date: Generated for Printi ng/Faxing/eTransmitting on: 0 11/15/2024 09:30 AM EDT
--- OUTSIDE RECORDS SUMMARY | 2024-11-10 10:06 | XMS_ITS ---
Author Organization Blu Brandt III, MD Address [address] [place] [address] [place] [address] Care Team Providers Care Supervisor Purification Name Role Phone Blu Brandt Primary Care Provider Medications Medication SIG (Take, Route, Fr equency, Duration) Notes Start Date End Date Status Meloxicam 15 MG 1 tablet Orally Once a day for 30 days 11/10/2024 03/09/2025 Active Social History Sex Assigned At : Social History Observation Description Sex Assigned At Male Encounters Encounter Location Date Provider Diagnosis Blu Brandt III, MD [address] [place] [address] [place] [address] 11/10/2024 Blu Brandt Plan Of Treatment Medication Medication Name Sig Start Date Stop Date Notes Meloxicam 15 MG 1 tablet Orally Once a day for 30 days 10/202403/09/2025 Next Appt Details Provider Name:Blu Brandt, 12/02/2024 02:30:00 PM, [address] [place] [address] [place], [address], Progress Notes * HEATHER MULLINSDOB:1955 (69 yo M)Acc No.[id number]:11/10/2024 Patient: HEATHER GRANDE :1955 A ge:69 Y S ex:Male Address:[address] [place], [address] * Refills Start Meloxicam Tablet, 15 MG, Orally, 30, 1 tablet, Once a day, 30 days, Refills=3 * true * Date: Generated for Tali smith/Rissa/Bernadette on: 0 11/15/2024 09:29 AM EDT
--- OUTSIDE RECORDS SUMMARY | 2024-11-15 09:30 | XMS_ITS | Patient Health Record ---
Author Organization Blu Brandt III, MD Address [address] [place] [address] Care Team Providers Care Greaser Helper Name Role Phone Blu Brandt Primary Care Provider Allergies Allergen (clinical drug ingredient) Drug/Non Drug Allergy documented on EMR Reaction Allergy Type Onset Date Status No Known Drug Allergy Unknown Drug Allergy Active Results Component Value Reference Range Notes URINE DIP STICK Reviewed date:11/30/2023 01:54:40 PM Interpretation: Performing Lab: Notes/Report: SG 1.010 1.005 - 1.025 pH 5.0 5.0 - 9.0 EILEEN Negative Negative - NIT Negative Negative - PRO 15 Negative - Trace GLU Negative Negative - KET Negative Negative - UBG 0.2 0.1 - 1.8 ANDRA Negative 0.2 - 1.3 BLD +++ Negative - Menstrating N/A Lipid Panel Reviewed date:03/28/2024 09:44:01 AM Interpretation: Performing Lab:[facility], [address] [place] [phone] Notes/Report: Triglycerides 102 <150 mg/dL Desirable Triglyceride: less than 150 mg/dL Borderline High Triglyceride 150-199 mg/dL High Triglyceride: 200-499 mg/dL Very High Triglyceride: greater than or equal to 5OO mg/dL Cholesterol 172 <200 mg/dL Desirable Cholesterol: less than 200 mg/dL Borderline High Cholesterol: 200-239 mg/dL High Cholesterol: greater than 239 mg/dL LDL Cholesterol Calculated 97 <100 mg/dL Desirable LDL: less than 100 mg/dL Near Optimal/Above Optimal LDL: 110-129 mg/dL Borderline High LDL: 130-159 mg/dL High LDL: 160-189 mg/dL Very High LDL: greater than or equal to 190 mg/dL HDL Cholesterol 55 >40 mg/dL Desirable HDL: greater than 40 mg/dL Note: This HDL assay may give artificially low results in patients with liver disease. Complete Blood Count Auto Di ff Reviewed date:03/28/2024 09:44:01 AM Interpretation: Performing Lab:[facility], [address] [place] [phone] Notes/Report: White Blood Count 3.6 4.8-10.8 X10*3/uL Red Blood Count 5.00 4.60-5.80 X10*6/uL Hemoglobin 16.0 14.0-18.0 g/dl Hematocrit 46.3 42.0-52.0 % Mean Corpuscular Volume 92.6 80.0-98.0 fL Mean Corpuscular Hemoglobin 32.0 27.0-33.0 pg Mean Corpuscular HGB Conc 34.6 31.0-36.0 g/dl Red Cell Distribution Width 12.7 11.0-16.0 % Platelet Count 197 160-400 X10*3/uL Mean Platelet Volume 10.7 9.4-12.4 fL Neutrophils Percent Auto 39.6 45-73 % Imm Gran Pct Auto 0.3 0.0-0.4 % Lymphocytes Percent Auto 46.8 20-40 % Monocytes Percent Auto 10.5 2-11 % Eosinophils Percent Auto 1.7 0-4 % Basophils Percent Auto 1.1 0-2 % NRBC Pct Auto 0.0 0.0-0.2 /100WBC Neutrophils Absolute Auto 1.4 2.0-8.3 x10*3/u L Imm Gran Abs Auto 0.01 0.00-0.03 X10*3/uL Lymphocytes Absolute Auto 1.7 1.2-4.9 X10*3/u L Monocytes Absolute Auto 0.4 0.1-1.2 X10*3/uL Eosinophils Absolute Auto 0.1 0.0-0.4 X10*3/u L Basophils Absolute Auto 0.0 0.0-0.2 X10*3/uL NRBC Abs Auto 0.000 0.0-0.012 X10*3/uL Comprehensive Stewart. Panel Fa st Reviewed date:03/28/2024 09:44:01 AM Interpretation: Performing Lab:[facility], [address] [place] [phone] Notes/Report: Sodium 141 135-145 mmol/L Potassium 4.1 3.3-5.1 mmol/L Chloride 106 96-108 mmol/L Carbon Dioxide 29 22-29 mmol/L Anion Gap 10 12-20 Blood Urea Nitrogen 16 9-16 mg/dL Creatinine 0.84 0.5-1.4 mg/dL Estimated Glomerular Filt Rate > 60 Chronic Kidney Disease: Estimated GFR < 60 mL/min/1.73m2 Severe Kidney Disease: Estimated GFR < 15 mL/min/1.73m2 Glucose Fasting 111 60-99 mg/dL A fasting glucose from 100-125 mg/dl is considered impaired (pre-diabetes). Calcium 9.6 8.4-10.2 mg/dL Bilirubin Total 1.0 0.0-1.0 mg/dL Aspartate Amino Transferase 21 5-37 U/L Alanine Aminotransferase 16 0-40 U/L Total Protein 7.9 6.5-8.0 g/dL Albumin Level 4.6 3.5-5.0 g/dL Alkaline Phosphatase 90 39-117 U/L Prostate Specific Antigen Reviewed date:03/28/2024 09:44:01 AM Interpretation: Performing Lab:[facility], [address] [place] [phone] Notes/Report: Prostate Specific Antigen 1.28 <0.05-4.0 ng/mL PSA methodology: Uribe Alinity i Chemiluminescent Microparticle Immunoassay (CMIA) Reason For Referral Reason Consult and Treat Left Shoulder Pain Diagnosis 1 Shoulder pain, left (M25.512) Referral Organization Blu Brandt III, MD Referring Provider First Name Blu Referring Provider Last Name Rikki Referring Provider Speciality Internal M edicine Referred Provider [facility] Referred Provider Specialty Orthopedic S urgery General Notes Emely Delcid 12/02 04:22:26 PM > Faxed referral and progress note.Farhana Amber 12/13/2023 01:39:14 PM > Office received referral and patient was called and attempted to schedule an appointment. Patient has not called back to schedule Rhona dickinson Amber 01/10/2024 02:21:46 PM > Patient was contacted by Dr. Brandt office and patient stated he just returned from [place] he will call in a few days to make an appointment., Emely Melgoza 03/25/2024 11:45:39 AM > Spoke with patient stated that he is no longer in need of the referral. Referral Closed Referral Priority Routine Reason Evaluate and Treat Scalp Folliculitis Diagnosis 1 Folliculitis (L73.9) Referral Organization Blu Brandt III, MD Referring Provider First Name Blu Referring Provider Last Name Rikki Referring Provider Speciality Internal M edicine Referred Provider [facility] ([place]) Referred Provider Specialty Dermatology General Notes Emely Melgoza 09/01/2024 01:50:20 PM > Cover sheet, progress note and referral faxed. Referral Priority Routine Referral Appointment Date 09/03/2024 Medications Medication SIG (Take, Route, Frequency, Duration) Notes Start Date End Date Status Ibuprofen 200 MG 2 tablets with food [...] every EVENING Orally Once a day Active hydroCHLOROthiazide 12.5 MG TAKE 1 CAPSU LE BY MOUTH EVERY DAY Orally Once a day Active Meloxicam 15 MG 1 tablet Orally Once a day for 30 days 11/10/2024 03/09/2025 Active Losartan Potassium 50 MG TAKE 1 TABLET B Y MOUTH DAILY Active Immunizations Vaccine Route Administration Date Status Comme nts COVID- 19 Vaccine Unknown 06/03/2020 Administered COVID- 19 Vaccine Unknown 06/24/2020 Administered FLuzone HD PF Unknown 11/16/2021 Administered COVID PFIZER Unknown 06/03/2020 Administered Influenza, quad Unknown 11/21/2020 Administered COVID PFIZER Unknown 02/11/2021 Administered Influenza, quad Unknown 12/02/2017 Administered Influenza, quad Unknown 12/06/2014 Administered Influenza, quad Unknown 11/24/2016 Administered Influenza, quad Unknown 01/22/2016 Administered Influenza, quad Unknown 12/02/2019 Administered COVID 19 Pfizer Unknown 02/20/2022 Administered Tdap Unknown 03/02/2013 Administered Influenza Vaccine Afluria IM Intramuscular 11/30/2023 Admi nistered Social History Tobacco Use: Social History Observation [...] Tobacco non-user Ex-cigaret te smoker amount unknown AUDIT-C (Standard) Question Answer Notes Did you have a drink containing alcohol in the p ast year? No Points 0 Interpretation Negative Problems Problem Type SNOMED Code ICD Code Onset Dates Problem Status W/U Status Risk Notes Problem 2632569 Former smoker (Z87.891) Active confirmed He is highly motivated not to smoke. He has a plan to prevent relapse in times of stress or illness. Problem 557770062 Overweight (BMI 25.0-29.9) (E66.3) Active confirmed He is slightly overweight with a body mass index of 26. We made a plan to lose weight at a rate of one half of a pound per week. Problem Benign prostatic hyperplasia (564700778) BPH (benign prostatic hyperplasia) (N40.0) Active confirmed He arises from sleep once a night to urinate. We have discussed lifestyle modification as a way to reduce nocturia. Problem 27174621 Essential hypertension (I10) Active confirmed His blood pressure today is stable. No change in his regimen is needed. Current therapy was continued without change. Problem Erectile dysfunction (477321967) Erectile dysfunction (N52.9) Active confirmed This has responded to appropriate medication. Problem 34142891 Leukopenia, unspecified decreased WBC count (D72.819) Active confirmed He has had no infections. Conference of blood work with a white blood cell count and differential ordered today. Problem 94964375 Benign cyst of left kidney (N28.1) Active confirmed There is a mildly complex cysts in the kidney. He is referred back to primary care for evaluation of this. Problem 82726997 Hiatal hernia (K44.9) Active confirmed He has had very little reflux symptoms lately. Has occasional heartburn is well controlled with uaep-rvz-xgkehy r medications. Problem 91185949 Hyperlipemia (E78.5) Active confirmed Comprehensive bblood work with a fasting lipid profile has been ordered. His medications will be adjusted if necessary. Problem 845480643 History of colonic polyps (Z86.010) Active confirmed He will have colonoscopy at the appropriate intervals. Problem 12898736 Folliculitis (L73.9) Active confirmed A second dermatological opinion has been arranged. Current therapy was continued for now. Problem 01039548 Acute blepharitis (H01.009) Active confirmed He has been using hot packs. He has completed the antibiotic course. He reports that the eye has returned to normal and no longer bothers him. He will come back to the office immediately if this recurs. Problem [id number] Contusion of sole of right foot (S90.31XA) Active confirmed He will be keept out of work for a week nonweightbearin g. He will use hot packs 3 times a day and elevate the leg. He will use ibuprofen. He'll return in 1 week. Vital Signs Heart Rate 83 /min 11/04/2024 Temperature 98 degrees Fahrenheit 11/04/2024 Blood pressure diastolic 70 mm Hg 11/04/2024 Height 68 in 11/04/2024 Blood pressure systolic 119 mm Hg 11/04/2024 Weight 173 lbs 11/04/2024 BMI 26.3 kg/m2 11/04/2024 Encounters Encounter Location Date Provider Diagnosis Blu Brandt III, MD [address] [place] [address] [place] [address] 11/30/2023 Blu Brandt BPH (benign prostati c hyperplasia) N40.0 ; Leukopenia, unspecified decreased WBC count D72.819 ; Encounter for immunization Z23 ; Hiatal hernia K44.9 ; Hyperlipemia E78.5 ; Essential hypertension I10 ; Former smoker Z87.891 and Overweight (BMI 25.0-29.9) E66.3 Blu Brandt III, MD [address] [place] [address] [place] [address] 03/28/2024 Blu Brandt BPH (benign prostati c hyperplasia) N40.0 ; Leukopenia, unspecified decreased WBC count D72.819 ; Hyperlipemia E78.5 ; Overweight (BMI 25.0-29.9) E66.3 ; Hiatal hernia K44.9 ; Essential hypertension I10 ; Flatulence R14.3 and Former smoker Z87.891 Blu Brandt III, MD [address] [place] [address] [place] [address] 05/14/2024 Blu Brandt BPH (benign prostati c hyperplasia) N40.0 ; Acute blepharitis H01.009 ; Leukopenia, unspecified decreased WBC count D72.819 ; Essential hypertension I10 ; Hiatal hernia K44.9 ; Former smoker Z87.891 and Overweight (BMI 25.0-29.9) E66.3 Blu Brandt III, MD [address] [place] [address] [place] [address] 05/23/2024 Blu Brandt BPH (benign prostati c hyperplasia) N40.0 ; Acute blepharitis H01.009 ; Overweight (BMI 25.0-29.9) E66.3 and Former smoker Z87.891 Blu Brandt III, MD [address] [place] [address] [place] [address] 08/29/2024 Blu Brandt BPH (benign prostati c hyperplasia) N40.0 ; Folliculitis L73.9 ; Hyperlipemia E78.5 ; Overweight (BMI 25.0-29.9) E66.3 ; Leukopenia, unspecified decreased WBC count D72.819 ; Hiatal hernia K44.9 ; Benign cyst of left kidney N28.1 ; Essential hypertension I10 and Former smoker Z87.891 Blu Brandt III, MD [address] [place] [address] [place] [address] 11/04/2024 Blu Brandt BPH (benign prostati c hyperplasia) N40.0 ; Contusion of sole of right foot S90.31XA ; Leukopenia, unspecified decreased WBC count D72.819 ; Hyperlipemia E78.5 ; Essential hypertension I10 ; Former smoker Z87.891 and Overweight (BMI 25.0-29.9) E66.3 Blu Brandt III, MD [address] [place] [address] [place] [address] 11/10/2024 Blu Brandt III, MD [address] [place] [address] [place] [address] 11/10/2024 Blu Brandt Assessments Encounter Date Diagnosis (ICD Code) Assessment Notes Treatment Notes Treatment Clinical Notes 11/30/2023 BPH (benign prostatic hyperplasia) (ICD-10 - N40.0) He arises from sleep once a night to urinate. We have discussed lifestyle modification as a way to reduce nocturia. 11/30/2023 Leukopenia, unspecified decreased WBC count (ICD-10 - D72.819) He has had no infections. Conference of blood work with a white blood cell count and differential ordered today. 03/28/2024 BPH (benign prostatic hyperplasia) (ICD-10 - N40.0) He arises from sleep once a night to urinate. We have discussed lifestyle modification as a way to reduce nocturia. 03/28/2024 Leukopenia, unspecified decreased WBC count (ICD-10 - D72.819) He has had no infections. Conference of blood work with a white blood cell count and differential ordered today. 05/14/2024 BPH (benign prostatic hyperplasia) (ICD-10 - N40.0) He arises from sleep once a night to urinate. We have discussed lifestyle modification as a way to reduce nocturia. 05/14/2024 Acute blepharitis (ICD-10 - H01.009) He will use hot packs and rest. The eye. I gave him an antibiotic with a followup visit. 05/23/2024 BPH (benign prostatic hyperplasia) (ICD-10 - [...] to the office immediately if this recurs. 08/29/2024 BPH (benign prostatic hyperplasia) (ICD-10 - N40.0) He arises from sleep once a night to urinate. We have discussed lifestyle modification as a way to reduce nocturia. 08/29/2024 Folliculitis (ICD-10 - L73.9) A second dermatological opinion has been arranged. Current therapy was continued for now. 11/04/2024 BPH (benign prostatic hyperplasia) (ICD-10 - [...] use ibuprofen. He'll return in 1 week. 11/30/2023 Encounter for immunization (ICD-10 - Z23) He receives his annual influenza vaccine today without complication. 03/28/2024 Hyperlipemia (ICD-10 - E78.5) No current values are available. Will have a fasting lipid profile prior to his next visit. No change in his regimen was needed today. 05/14/2024 Leukopenia, unspecified decreased WBC count (ICD-10 - D72.819) He has had no infections. Conference of blood work with a white blood cell count and differential ordered today. 05/23/2024 Overweight (BMI 25.0-29.9) (ICD-10 - E66.3) He weighs 179 pounds and has a body mass index of 27. We discussed a weight loss strategy that will lose weight at a rate of one half of a pound per week. 08/29/2024 Hyperlipemia (ICD-10 - E78.5) Comprehensive bblood work with a fasting lipid profile has been ordered. His medications will be adjusted if necessary. 11/04/2024 Leukopenia, unspecified decreased WBC count (ICD-10 - D72.819) He has had no infections. Conference of blood work with a white blood cell count and differential ordered today. 11/30/2023 Hiatal hernia (ICD-10 - K44.9) He has had very little reflux symptoms lately. Has occasional heartburn is well controlled with rrdl-emm-btxiury medications. 03/28/2024 Overweight (BMI 25.0-29.9) (ICD-10 - E66.3) He weighs 179 pounds and has a body mass index of 27. We discussed a weight loss strategy that will lose weight at a rate of one half of a pound per week. 05/14/2024 Essential hypertension (ICD-10 - I10) His blood pressure today is 139/78. No change in his regimen is needed. Current therapy was continued without change. 05/23/2024 Former smoker (ICD-10 - Z87.891) He is highly motivated not to smoke. He has a plan to prevent relapse in times of stress or illness. 08/29/2024 Overweight (BMI 25.0-29.9) (ICD-10 - E66.3) He is slightly overweight with a body mass index of 26. We made a plan to lose weight at a rate of one half of a pound per week. 11/04/2024 Hyperlipemia (ICD-10 - E78.5) Comprehensive bblood work with a fasting lipid profile has been ordered. His medications will be adjusted if necessary. 11/30/2023 Hyperlipemia (ICD-10 - E78.5) His lipids have been stable and no change in his regimen was needed. Comprehensive blood work with a fasting lipid profile was ordered today. 03/28/2024 Hiatal hernia (ICD-10 - K44.9) He has had very little reflux symptoms lately. Has occasional heartburn is well controlled with ummo-eez-gdivjrp medications. 05/14/2024 Hiatal hernia (ICD-10 - K44.9) He has had very little reflux symptoms lately. Has occasional heartburn is well controlled with npyj-puc-ydufbta medications. 08/29/2024 Leukopenia, unspecified decreased WBC count (ICD-10 - D72.819) He has had no infections. Conference of blood work with a white blood cell count and differential ordered today. 11/04/2024 Essential hypertension (ICD-10 - I10) His blood pressure today is stable. No change in his regimen is needed. Current therapy was continued without change. 11/30/2023 Essential hypertension (ICD-10 - I10) His blood pressure today is 138/80. No change in his regimen is needed. Current therapy was continued without change. 03/28/2024 Essential hypertension (ICD-10 - I10) His blood pressure today is 139/78. No change in his regimen is needed. Current therapy was continued without change. 05/14/2024 Former smoker (ICD-10 - Z87.891) He is highly motivated not to smoke. He has a plan to prevent relapse in times of stress or illness. 08/29/2024 Hiatal hernia (ICD-10 - K44.9) He has had very little reflux symptoms lately. Has occasional heartburn is well controlled with prsr-ora-zwthxcr medications. 11/04/2024 Former smoker (ICD-10 - Z87.891) He is highly motivated not to smoke. He has a plan to prevent relapse in times of stress or illness. 11/30/2023 Former smoker (ICD-10 - Z87.891) He is highly motivated not to smoke. He has a plan to prevent relapse in times of stress or illness. 03/28/2024 Flatulence (ICD-10 - R14.3) We discussed his diet and the foods that can cause flatulence. Examination was unremarkable. Watchfulness did not occur during the examination. He will report back if anything worsens. He will keep a food diary 05/14/2024 Overweight (BMI 25.0-29.9) (ICD-10 - E66.3) He weighs 179 pounds and has a body mass index of 27. We discussed a weight loss strategy that will lose weight at a rate of one half of a pound per week. 08/29/2024 Benign cyst of left kidney (ICD-10 - N28.1) There is a mildly complex cysts in the kidney. He is referred back to primary care for evaluation of this. 11/04/2024 Overweight (BMI 25.0-29.9) (ICD-10 - E66.3) He is slightly overweight with a body mass index of 26. We made a plan to lose weight at a rate of one half of a pound per week. 11/30/2023 Overweight (BMI 25.0-29.9) (ICD-10 - E66.3) His body mass index is 26.9. We discussed stabilizing his weight at this level been gradually reducing and until it is in the normal range to a healthy diet and regular physical activity. 03/28/2024 Former smoker (ICD-10 - Z87.891) He is highly motivated not to smoke. He has a plan to prevent relapse in times of stress or illness. 08/29/2024 Essential hypertension (ICD-10 - I10) His blood pressure today is stable. No change in his regimen is needed. Current therapy was continued without change. 08/29/2024 Former smoker (ICD-10 - Z87.891) He is highly motivated not to smoke. He has a plan to prevent relapse in times of stress or illness. Plan Of Treatment Pending Test Test Name Order Date PROFILE, FASTING (COMPREHENSIVE METABOLI C) 02/11/2021 PROFILE, FASTING (COMPREHENSIVE METABOLI C) 03/28/2024 PROFILE, FASTING (COMPREHENSIVE METABOLI C) 12/26/2019 PROFILE, FASTING (COMPREHENSIVE METABOLI C) 08/16/2018 PROFILE, FASTING (COMPREHENSIVE METABOLI C) 05/17/2018 PROFILE, FASTING (COMPREHENSIVE METABOLI C) 07/02/2020 PROFILE, FASTING (COMPREHENSIVE METABOLI C) 11/30/2023 PROFILE, FASTING (COMPREHENSIVE METABOLI C) 12/16/2021 PROFILE, FASTING (COMPREHENSIVE METABOLI C) 12/26/2022 PROFILE, FASTING (COMPREHENSIVE METABOLI C) 08/12/2021 PROFILE, FASTING (COMPREHENSIVE METABOLI C) 07/21/2022 PROFILE, FASTING (COMPREHENSIVE METABOLI C) 08/29/2024 PROFILE, FASTING (COMPREHENSIVE METABOLI C) 04/02/2020 PROFILE, RANDOM (COMPREHENSIVE METABOLIC ) 07/27/2017 PROFILE, RANDOM (COMPREHENSIVE METABOLIC ) 04/21/2022 PROFILE, RANDOM (COMPREHENSIVE METABOLIC ) 02/09/2017 PROFILE, RANDOM (COMPREHENSIVE METABOLIC ) 04/11/2019 LIPID PANEL 07/21/2022 LIPID PANEL 04/02/2020 LIPID PANEL 12/26/2019 LIPID PANEL 08/16/2018 LIPID PANEL 04/21/2022 LIPID PANEL 05/17/2018 LIPID PANEL 07/02/2020 PSA, TOTAL 08/29/2024 PSA, TOTAL 02/11/2021 PSA, TOTAL 03/28/2024 PSA, TOTAL 09/01/2022 PSA, TOTAL 12/26/2019 PSA, TOTAL 12/16/2021 PSA, TOTAL 11/30/2023 PSA, TOTAL 05/17/2018 PSA, TOTAL 12/26/2022 CBC w DIFF 05/17/2018 CBC w DIFF 07/21/2022 CBC w DIFF 08/29/2024 CBC w DIFF 07/27/2017 CBC w DIFF 04/02/2020 CBC w DIFF 02/11/2021 CBC w DIFF 08/16/2018 CBC w DIFF 04/21/2022 CBC w DIFF 12/26/2019 CBC w DIFF 07/02/2020 CBC w DIFF 12/16/2021 CBC w DIFF 04/11/2019 CBC w DIFF 08/12/2021 CBC with MANUAL DIFFERENTIAL 02/09/2017 XR LUMBAR SPINE 4+ VIEWS 11/24/2022 US RENAL BILATERAL 06/15/2017 US URINARY BLADDER 06/15/2017 CBC WITH AUTO DIFF 12/26/2022 CBC WITH AUTO DIFF 03/28/2024 CBC WITH AUTO DIFF 11/30/2023 Lipid Panel 12/16/2021 Lipid Panel 08/12/2021 Lipid Panel 12/26/2022 Lipid Panel 08/29/2024 Lipid Panel 02/11/2021 Lipid Panel 03/28/2024 Neutrophil Cytoplasma Ab 08/12/2021 Next Appt Details Provider Name:Blu Brandt, 12/02/2024 02:30:00 PM, [address] [place] [address] DR, [facility] [address], [place], [address], Insurance Providers Payer Name Payer Address Payer Phone Subscriber Number Group Number Insured Name Patient Relationship to Insured Coverage Start Date Coverage End Date [facility] [address] [facility] [address] [facility] [place] [phone] [id number] [facility] Self - patient is the insured Medical (General) History Medical History History ICD Code hypertension hyperlipidemia diverticulosis cysts right kidney hemorrhoids colonic polyp, tubular adenoma hiatal hernia 1 cm umbilical hernia by CT scan Surgical History Surgery Date(Month/Year) No history colonoscopy 2008 tonsillectomy, childhood Hospitalization History Reason Date(Month/Year) No history
--- OUTSIDE RECORDS SUMMARY | 2024-11-15 09:30 | XMS_ITS | Patient Health Record ---
Author Organization [facility] Address [address] [place] [address] Care Team Providers Care Community Integration Specialist Name Role Phone Blu Brandt MD Primary Care Provider Unavailab Blu Hartman Unavailable [phone] Allergies No Known Allergies Reason For Referral No Information Medications Medication SIG (Take, Route, Frequency, Duration) Notes Start Date End Date Status Simvastatin 40mg Act reynold hydroCHLOROthiazide 12.5 MG 1 capsule in the morning Orally Once a day for 30 day(s) Active Fish Oil 1360 MG 1 capsule Orally Twi ce a day Active Losartan Potassium 50-12.5 Active Aspirin 81mg Active Vitamins/Minerals Ac tive Immunizations Vaccine Route Administration Date Status Comme nts Influenza Unknown 01/25/2021 Administered Social History Alcohol Screen Question Answer Notes Did you have a drink containing alcohol in the p ast year? No Points 0 Interpretation Negative Section Notes: Nonsmoker; no sig. alcohol Nonsmoker; no alcohol Problems Problem Type SNOMED Code ICD Code Onset Dates Problem Status W/U Status Risk Notes Problem 135349741 Encounter for screening for malignant neoplasm of colon (Z12.11) Active confirmed Problem 120841646 History of adenomatous polyp of colon (Z86.010) Active confirmed Problem [id number] Preprocedural examination (Z01.818) Active confirmed Problem Diverticulosis of colon (767144208) Diverticulosis of colon (K57.30) Active confirmed Plan Of Treatment Pending Test Test Name Order Date Pathology 07/08/2021 Future Test Test Name Order Date COLONOSCOPY 03/06/2013 COLONOSCOPY 06/03/2021 Insurance Providers Payer Name Payer Address Payer Phone Subscriber Number Group Number Insured Name Patient Relationship to Insured Coverage Start Date Coverage End Date [facility] [address] [place] [phone] [id number] HEATHER MULLINS Self - patient is the insured Medical (General) History Medical History History ICD Code Hypertension Screening colonoscopy 2007--serrated adenomas and tubular adenomas removed Denies ID,DM,CVA,Lung disease,renal dise ase Hyperlipidemia Colonoscopy in 2013--several tubular raimundo nomas removed Surgical History Surgery Date(Month/Year) Tonsillectomy
[2024-11-15 09:39] LABS: MANUAL DIFF FLAG NO
[2024-11-15 09:52] LABS: Hematocrit 43.5 % (42.0-52.0); Hemoglobin 14.7 g/dl (14.0-18.0); Imm Gran Abs Auto 0.00 X10*3/uL (0.00-0.03); Imm Gran Pct Auto 0.0 % (0.0-0.4); Lymphocytes Absolute Auto 1.7 X10*3/uL (1.2-4.9); Mean Corpuscular HGB Conc 33.8 g/dl (31.0-36.0); Mean Corpuscular Hemoglobin 31.7 pg (27.0-33.0); Mean Corpuscular Volume 94.0 fL (80.0-98.0); NRBC Abs Auto 0.000 X10*3/uL (0.0-0.012); NRBC Pct Auto 0.0 /100WBC (0.0-0.2); Platelet Count 162 X10*3/uL (160-400); Red Blood Count 4.63 X10*6/uL (4.60-5.80); White Blood Count 3.8 X10*3/uL (4.8-10.8)
[2024-11-15 10:28] LABS: Alanine Aminotransferase 14 U/L (0-40); Albumin Level 4.6 g/dL (3.5-5.0); Alkaline Phosphatase 73 U/L (39-117); Anion Gap 12 (12-20); Aspartate Amino Transferase 21 U/L (5-37); Blood Urea Nitrogen 22 mg/dL (9-16); Calcium 9.2 mg/dL (8.4-10.2); Carbon Dioxide 29 mmol/L (22-29); Chloride 108 mmol/L (96-108); Cholesterol 164 mg/dL (<200); Estimated Glomerular Filt Rate > 60; HDL Cholesterol 50 mg/dL (>40); Potassium 4.5 mmol/L (3.3-5.1); Sodium 144 mmol/L (135-145); Total Protein 6.9 g/dL (6.5-8.0); Triglycerides 83 mg/dL (<150)
[2024-11-15 10:39] LABS: Prostate Specific Antigen 1.34 ng/mL (<0.05-4.0)
== END 2024-11-15 09:28 | disposition home or self-care (01) ==
LOC: HO.LAB 09:27
PROVIDERS: PCP Internal Medicine Medical Oncology; Visit Provider Internal Medicine Medical Oncology
DX: N40.0 Benign prostatic hyperplasia without lower urinary tract symptoms (principal); E78.5 Hyperlipidemia, unspecified; E66.3 Overweight; Z12.5 Encounter for screening for malignant neoplasm of prostate
CPT/HCPCS: 36415; 80053; 80061; 84153; 85025

== ENCOUNTER 2025-01-23 10:16 | Outpatient (AMB) | payer OTHER, SELFPAY ==
--- OUTSIDE RECORDS SUMMARY | 2024-03-28 04:30 | XMS_ITS ---
Author Organization Blu Brandt III, MD Address [address] [place] [address] Care Team Providers [employer] Professional Name Role Phone Dr. Blu Brandt III Primary Care Provider [phone] Allergies Allergen (clinical drug ingredient) Drug/Non Drug Allergy documented on EMR Reaction Allergy Type Onset Date Status No Known Drug Allergy Unknown Drug Allergy Active REASON FOR VISIT Flatulence, Leukocytopenia, Hyperlipidemia, Hypertension, Benign prostatic hypertrophy Medications Medication SIG (Take, Route, Frequency, Duration) Notes Start Date End Date Status Cyclobenzaprine HCl 10 MG 1 tablet at be dtime as needed Orally three times a day 11/29/2022 Active Sildenafil Citrate 20 MG 1 tablet Orally Once a day 04/21/2022 Active Simvastatin 40 MG TAKE 1 TABLET BY NANCY TH EVERY DAY IN THE EVENING Active Losartan Potassium 50 MG TAKE 1 TABLET B Y MOUTH DAILY Active hydroCHLOROthiazide 12.5 MG TAKE 1 CAPSU LE BY MOUTH EVERY DAY Orally Once a day Active Fish Oil 1000 MG 1 capsule Orally Onc e a day Active Ibuprofen 200 MG 2 tablets with food or milk as needed Orally Three times a day as needed 12/08/2022 Active Social History Tobacco Use: Social History Observation Description Date Details (start date - stop date) Former Smoker NA - NA Sex Assigned At : Social History Observation Description Sex Assigned At Male Tobacco Use/Smoking Question Answer Notes Patient is a former smoker How long has it been since you last smoked? > 10 years Additional Findings: Tobacco Non-User Ex-cigaret te smoker Tobacco Control (Standard) Question Answer Notes Tobacco use: Former smoker How long has it been since you last smoked? Grea ter than 10 years Additional Findings: Tobacco non-user Ex-cigaret te smoker amount unknown Vital Signs Temperature 97.9 degrees Fahrenheit 03/28/19 25 Blood pressure systolic 139 mm Hg 03/28/19 25 Blood pressure diastolic 78 mm Hg 025 Heart Rate 64 /min 03/28/2024 Height 68 in 03/28/2024 Weight 179 lbs 03/28/2024 BMI 27.21 kg/m2 03/28/2024 Encounters Encounter Location Date Provider Diagnosis Blu Brandt III, MD [address] [place] [address] [place] [address] 03/28/2024 Blu Brandt BPH (benign prostati c hyperplasia) N40.0 ; Leukopenia, unspecified decreased WBC count D72.819 ; Hyperlipemia E78.5 ; Overweight (BMI 25.0-29.9) E66.3 ; Hiatal hernia K44.9 ; Essential hypertension I10 ; Flatulence R14.3 and Former smoker Z87.891 Assessments Encounter Date Diagnosis (ICD Code) Assessment Notes Treatment Notes Treatment Clinical Notes 03/28/2024 BPH (benign prostatic hyperplasia) (ICD-10 - N40.0) He arises from sleep once a night to urinate. We have discussed lifestyle modification as a way to reduce nocturia. 03/28/2024 Leukopenia, unspecified decreased WBC count (ICD-10 - D72.819) He has had no infections. Conference of blood work with a white blood cell count and differential ordered today. 03/28/2024 Hyperlipemia (ICD-10 - E78.5) No current values are available. Will have a fasting lipid profile prior to his next visit. No change in his regimen was needed today. 03/28/2024 Overweight (BMI 25.0-29.9) (ICD-10 - E66.3) He weighs 179 pounds and has a body mass index of 27. We discussed a weight loss strategy that will lose weight at a rate of one half of a pound per week. 03/28/2024 Hiatal hernia (ICD-10 - K44.9) He has had very little reflux symptoms lately. Has occasional heartburn is well controlled with nbqn-qlt-ajtyrbk medications. 03/28/2024 Essential hypertension (ICD-10 - I10) His blood pressure today is 139/78. No change in his regimen is needed. Current therapy was continued without change. 03/28/2024 Flatulence (ICD-10 - R14.3) We discussed his diet and the foods that can cause flatulence. Examination was unremarkable. Watchfulness did not occur during the examination. He will report back if anything worsens. He will keep a food diary 03/28/2024 Former smoker (ICD-10 - Z87.891) He is highly motivated not to smoke. He has a plan to prevent relapse in times of stress or illness. Plan Of Treatment Medication Medication Name Sig Start Date Stop Date Notes Cyclobenzaprine HCl 10 MG 1 tablet at be dtime as needed Orally three times a day 11/29/2022 Sildenafil Citrate 20 MG 1 tablet Orally Once a day 2022 Simvastatin 40 MG TAKE 1 TABLET BY NANYC TH EVERY DAY IN THE EVENING Losartan Potassium 50 MG TAKE 1 TABLET BY MOUTH DAILY hydroCHLOROthiazide 12.5 MG TAKE 1 CAPSU LE BY MOUTH EVERY DAY Orally Once a day Fish Oil 1000 MG 1 capsule Orally Once a day Ibuprofen 200 MG 2 tablets with food or milk as needed Orally Three times a day as needed 12/08/2022 Pending Test Test Name Order Date PROFILE, FASTING (COMPREHENSIVE METABOLI C) 03/28/2024 PSA, TOTAL 03/28/2024 CBC WITH AUTO DIFF 03/28/2024 Lipid Panel 03/28/2024 Next Appt Details Follow Up: As Schedule, Mireille al visit in November, Reason: Annual Exam, Annual check-up Provider Name:Blu Brandt , 05/01/2025 09:15:00 AM, [address] [place] [address] [address], [place], [phone], Provider Name:Blu Brandt , 12/04/2025 02:00:00 PM, [address] [place] [address] [address], [place], [phone], Progress Notes * HEATHER MULLINSDOB:1955 (69 yo M)Acc No.[id number]:03/28/2024 Progress Notes Patient: HEATHER GRANDE Provider: Kaylie Brandt MD :1955 A ge:69 Y S ex:Male Date:03/28/2024 Address: [address], [place] , [id number] Subjective: * Chief Complaints: * F latulenceLeukocytopeniaHyperlipidemiaHypertensionBenign prostatic hypertrophy * HPI: C OVID-19 Screening: Questions H ave you had any new onset fever, chills, cough, congestion, sore throat, shortness of breath, muscle aches? N o * : The patient, a 69-year-old male, presented with complaints of excessive gas, which he attributes to his diet. He has been experiencing this issue since his last visit in November. The patient does not report any new troubles or pain. He also mentioned that he had his blood drawn last week. The patient's weight has increased by about 2 lbs over the holidays. He is currently on Simvastatin. The patient's blood pressure was checked and was found to be normal. The patient's blood test results showed a slightly low white blood cell count and slightly abnormal neutrophil and lymphocyte counts. However, the doctor reassured the patient that he can fight infection normally. The patient's chemistries, kidney function, and blood sugar levels were all normal. His PSA levels were also normal, indicating no signs of prostate cancer. * ROS: G eneral/Constitutional: pain o nly normal aches and pains. C hills d enies.?Fatigue a dmits. F ever d enies. E NT: Decreased hearing d enies. R espiratory: Cough d enies. C ardiovascular: Chest pain with exertion d enies. D yspnea on exertion?denies. S hortness of breath t hat is moderate. G astrointestinal: Constipation d enies. D ecreased appetite d enies.?Diarrhea d enies. H eartburn o ccasional. N ausea d enies. R ectal bleeding d enies. V omiting d enies. H ematology: bruising d enies. p etechiae d enies. S wollen glands n one have been noted. G enitourinary: Frequent urination d enies. M usculoskeletal: Muscle aches d enies. P ainful joints d enies. S ciatica d enies. W eakness d enies. S kin: Itching d enies. R edenilson d enies. S kin lesion(s)?denies. N eurologic: Difficulty speaking d enies. D izziness d enies.?Headache d enies. L ow back pain d enies. P sychiatric: Depressed mood d enies. * Medical History: * Surgical History: t onsillectomy, childhood colonoscopy 2007No history * Hospitalization/Major Diagno stic Procedure: N o history * Family History: F ather: , Well. M other: 50 yrs, Automobile accident. C hildren: alive. D aughter(s): alive, thyroid /cholesterol issues/hypertension, diagnosed with HTN. 1 2 brother(s) , 6 sister(s) . 2 daughter(s) - healthy. . His daughters have issues with thyroid disease, hypertension and hyperlipidemia. * Social History: T obacco Use: T obacco Use/Smoking P atient is a f ormer smoker H ow long has it been since you last smoked??> 10 years A dditional Findings: Tobacco Non-User E x-cigarette smoker Tobacco Control (Standard) T obacco use: F ormer smoker H ow long has it been since you last smoked??Greater than 10 years A dditional Findings: Tobacco non-user E x-cigarette smoker amount unknown H ines has a daughter Radha. He was born in [place], [place] and has been in [place] for 34 years. He is retired. He does not drink alcohol. * Medications: T akingSimvastatin 40 MG Tablet TAKE 1 TABLET BY MOUTH EVERY DAY IN THE EVENING Ibuprofen 200 MG Tablet 2 tablets with food or milk as needed Orally Three times a day as needed Fish Oil 1000 MG Capsule 1 capsule Orally Once a day Sildenafil Citrate 20 MG Tablet 1 tablet Orally Once a day Cyclobenzaprine HCl 10 MG Tablet 1 tablet at bedtime as needed Orally three times a day Losartan Potassium 50 MG Tablet TAKE 1 TABLET BY MOUTH DAILY hydroCHLOROthiazide 12.5 MG Capsule TAKE 1 CAPSULE BY MOUTH EVERY DAY Orally Once a day Medication List reviewed and reconciled with the patientTaking Simvastatin 40 MG Tablet TAKE 1 TABLET BY MOUTH EVERY DAY IN THE EVENING Taking Ibuprofen 200 MG Tablet 2 tablets with food or milk as needed Orally Three times a day as needed Taking Fish Oil 1000 MG Capsule 1 capsule Orally Once a day Taking Sildenafil Citrate 20 MG Tablet 1 tablet Orally Once a day Taking Cyclobenzaprine HCl 10 MG Tablet 1 tablet at bedtime as needed Orally three times a day Taking Losartan Potassium 50 MG Tablet TAKE 1 TABLET BY MOUTH DAILY Taking hydroCHLOROthiazide 12.5 MG Capsule TAKE 1 CAPSULE BY MOUTH EVERY DAY Orally Once a day Medication List reviewed and reconciled with the patient * Allergies: N o Known Drug Allergyno[Allergies Verified] Objective: * Vitals: H t: 68, Wt:179, BMI:27.21, BP:139/78, HR:64, Temp:97.9, Wt-k.19. * P ast Orders: Lab:Complete Blood Count Aut o Diff * Collection Date 03/22/2024 07/28/2023 11/17/2022 Collection Time 07:48 AM 07:50 AM 09:42 AM Order Date 03/22/2024 07/28/2023 11/17/2022 White Blood Count 3.6 L (Ref Range: 4.8-10.8 X10*3/uL) 3.2 L (Ref Range: 4.8-10.8 X10*3/uL) 3.9 L (Ref Range: 4.8-10.8 X10*3/uL) Red Blood Count 5.00 (Ref Range: 4.60-5.80 X10*6/uL) 4.87 (Ref Range: 4.60-5.80 X10*6/uL) 4.76 (Ref Range: 4.60-5.80 X10*6/uL) Hemoglobin 16.0 (Ref Range: 14.0-18.0 g/dl) 15.6 (Ref Range: 14.0-18.0 g/dl) 15.2 (Ref Range: 14.0-18.0 g/dl) Hematocrit 46.3 (Ref Range: 42.0-52.0 %) 45.9 (Ref Range: 42.0-52.0 %) 44.6 (Ref Range: 42.0-52.0 %) Mean Corpuscular Volume 92.6 (Ref Range: 80.0-98.0 fL) 94.3 (Ref Range: 80.0-98.0 fL) 93.7 (Ref Range: 80.0-98.0 fL) Mean Corpuscular Hemoglobin 32.0 (Ref Range: 27.0-33.0 pg) 32.0 (Ref Range: 27.0-33.0 pg) 31.9 (Ref Range: 27.0-33.0 pg) Mean Corpuscular HGB Conc 34.6 (Ref Range: 31.0-36.0 g/dl) 34.0 (Ref Range: 31.0-36.0 g/dl) 34.1 (Ref Range: 31.0-36.0 g/dl) Red Cell Distribution Width 12.7 (Ref Range: 11.0-16.0 %) 12.4 (Ref Range: 11.0-16.0 %) 12.3 (Ref Range: 11.0-16.0 %) Platelet Count 197 (Ref Range: 160-400 X10*3/uL) 170 (Ref Range: 160-400 X10*3/uL) 160 (Ref Range: 160-400 X10*3/uL) Mean Platelet Volume 10.7 (Ref Range: 9.4-12.4 fL) 10.5 (Ref Range: 9.4-12.4 fL) 10.4 (Ref Range: 9.4-12.4 fL) Neutrophils Percent Auto 39.6 L (Ref Range: 45-73 %) 34.4 L (Ref Range: 45-73 %) 34.1 L (Ref Range: 45-73 %) Imm Gran Pct Auto 0.3 (Ref Range: 0.0-0.4 %) 0.3 (Ref Range: 0.0-0.4 %) 0.0 (Ref Range: 0.0-0.4 %) Lymphocytes Percent Auto 46.8 H (Ref Range: 20-40 %) 54.6 H (Ref Range: 20-40 %) 55.7 H (Ref Range: 20-40 %) Monocytes Percent Auto 10.5 (Ref Range: 2-11 %) 8.5 (Ref Range: 2-11 %) 8.1 (Ref Range: 2-11 %) Eosinophils Percent Auto 1.7 (Ref Range: 0-4 %) 1.6 (Ref Range: 0-4 %) 1.3 (Ref Range: 0-4 %) Basophils Percent Auto 1.1 (Ref Range: 0-2 %) 0.6 (Ref Range: 0-2 %) 0.8 (Ref Range: 0-2 %) NRBC Pct Auto 0.0 (Ref Range: 0.0-0.2 /100WBC) 0.0 (Ref Range: 0.0-0.2 /100WBC) 0.0 (Ref Range: 0.0-0.2 /100WBC) Neutrophils Absolute Auto 1.4 L (Ref Range: 2.0-8.3 x10*3/uL) 1.1 L (Ref Range: 2.0-8.3 x10*3/uL) 1.3 L (Ref Range: 2.0-8.3 x10*3/uL) Imm Gran Abs Auto 0.01 (Ref Range: 0.00-0.03 X10*3/uL) 0.01 (Ref Range: 0.00-0.03 X10*3/uL) 0.00 (Ref Range: 0.00-0.03 X10*3/uL) Lymphocytes Absolute Auto 1.7 (Ref Range: 1.2-4.9 X10*3/uL) 1.7 (Ref Range: 1.2-4.9 X10*3/uL) 2.2 (Ref Range: 1.2-4.9 X10*3/uL) Monocytes Absolute Auto 0.4 (Ref Range: 0.1-1.2 X10*3/uL) 0.3 (Ref Range: 0.1-1.2 X10*3/uL) 0.3 (Ref Range: 0.1-1.2 X10*3/uL) Eosinophils Absolute Auto 0.1 (Ref Range: 0.0-0.4 X10*3/uL) 0.1 (Ref Range: 0.0-0.4 X10*3/uL) 0.1 (Ref Range: 0.0-0.4 X10*3/uL) Basophils Absolute Auto 0.0 (Ref Range: 0.0-0.2 X10*3/uL) 0.0 (Ref Range: 0.0-0.2 X10*3/uL) 0.0 (Ref Range: 0.0-0.2 X10*3/uL) NRBC Abs Auto 0.000 (Ref Range: 0.0-0.012 X10*3/uL) 0.000 (Ref Range: 0.0-0.012 X10*3/uL) 0.000 (Ref Range: 0.0-0.012 X10*3/uL) * Lab:[facility] castillo Fast * Collection Date 03/22/2024 07/28/2023 04/15/2022 Collection Time 07:48 AM 07:50 AM 08:16 AM Order Date 03/22/2024 07/28/2023 04/15/2022 Sodium 141 (Ref Range: 135-145 mmol/L) 143 (Ref Range: 135-145 mmol/L) 142 (Ref Range: 135-145 mmol/L) Bilirubin Total 1.0 (Ref Range: 0.0-1.0 mg/dL) 0.7 (Ref Range: 0.0-1.0 mg/dL) 1.0 (Ref Range: 0.0-1.0 mg/dL) Aspartate Amino Transferase 21 (Ref Range: 5-37 U/L) 16 (Ref Range: 5-37 U/L) 17 (Ref Range: 5-37 U/L) Alanine Aminotransferase 16 (Ref Range: 0-40 U/L) 14 (Ref Range: 0-40 U/L) 15 (Ref Range: 0-40 U/L) Total Protein 7.9 (Ref Range: 6.5-8.0 g/dL) 7.1 (Ref Range: 6.5-8.0 g/dL) 7.1 (Ref Range: 6.5-8.0 g/dL) Albumin Level 4.6 (Ref Range: 3.5-5.0 g/dL) 4.3 (Ref Range: 3.5-5.0 g/dL) 4.5 (Ref Range: 3.5-5.0 g/dL) Alkaline Phosphatase 90 (Ref Range: 39-117 U/L) 76 (Ref Range: 39-117 U/L) 71 (Ref Range: 39-117 U/L) Potassium 4.1 (Ref Range: 3.3-5.1 mmol/L) 4.0 (Ref Range: 3.3-5.1 mmol/L) 4.7 (Ref Range: 3.3-5.1 mmol/L) Chloride 106 (Ref Range: 96-108 mmol/L) 106 (Ref Range: 96-108 mmol/L) 106 (Ref Range: 96-108 mmol/L) Carbon Dioxide 29 (Ref Range: 22-29 mmol/L) 29 (Ref Range: 22-29 mmol/L) 27 (Ref Range: 22-29 mmol/L) Anion Gap 10 L (Ref Range: 12-20) 12 (Ref Range: 12-20) 14 (Ref Range: 12-20) Blood Urea Nitrogen 16 (Ref Range: 9-16 mg/dL) 17 H (Ref Range: 9-16 mg/dL) 21 H (Ref Range: 9-16 mg/dL) Creatinine 0.84 (Ref Range: 0.5-1.4 mg/dL) 0.86 (Ref Range: 0.5-1.4 mg/dL) 0.98 (Ref Range: 0.5-1.4 mg/dL) Estimated Glomerular Filt Rate > 60 > 60 > 60 Glucose Fasting 111 H (Ref Range: 60-99 mg/dL) 110 H (Ref Range: 60-99 mg/dL) 121 H (Ref Range: 60-99 mg/dL) Calcium 9.6 (Ref Range: 8.4-10.2 mg/dL) 9.5 (Ref Range: 8.4-10.2 mg/dL) 9.7 (Ref Range: 8.4-10.2 mg/dL) * Lab:Prostate Specific Antige n * Collection Date 03/22/2024 07/28/2023 04/15/2022 Collection Time 07:48 AM 07:50 AM 08:16 AM Order Date 03/22/2024 07/28/2023 04/15/2022 Prostate Specific Antigen 1.28 (Ref Range: <0.05-4.0 ng/mL) 1.24 (Ref Range: <0.05-4.0 ng/mL) 1.10 (Ref Range: <0.05-4.0 ng/mL) * Examination: G eneral Examination: GENERAL APPEARANCE: p leasant, well nourished, well developed, in no acute distress, calm and relaxed, overweight, man. HEAD: a traumatic, normocephalic. EYES: e odin, perrla, anicteric, conjugate. EARS: n ormal. NOSE: s eptum intact. ORAL CAVITY: n ormal, unremarkable. NECK/THYROID: n o jugular venous distention, no carotid bruit, thyroid normal. LYMPH NODES: n o enlarged lymph nodes,spleen normal. SKIN: n o suspicious lesions, anicteric. HEART: n o clicks, gallops, murmurs, or rubs, regular rhythm, S1, S2 normal, no s3, or vascular bruits. LUNGS: c lear to auscultation . BREASTS: no masses palpable bilaterally. ABDOMEN: b owel sounds normal, no ascites, no organomegaly, no mass, o verweight. RECTAL EXAM: n ot examined. MUSCULOSKELETAL: e xtremities unremarkable, no clubbing, cyanosis or edema. PERIPHERAL PULSES: n ormal. NEUROLOGIC: a lert and oriented, cranial nerves 2-12 grossly intact, deep tendon reflexes 2+ symmetrical, motor strength normal upper and lower extremities, sensory exam intact. PSYCH: a lert, oriented. Assessment: * Assessment: 1. L eukopenia, unspecified decreased WBC count - D72.819 (Primary) N otes :He has had no infections. Conference of blood work with a white blood cell count and differential ordered today. 2 . B PH (benign prostatic hyperplasia) - N40.0 N otes :He arises from sleep once a night to urinate. We have discussed lifestyle modification as a way to reduce nocturia. 3 . H yperlipemia - E78.5 N otes :No current values are available. Will have a fasting lipid profile prior to his next visit. No change in his regimen was needed today. 4 . O verweight (BMI 25.0-29.9) - E66.3 N otes :He weighs 179 pounds and has a body mass index of 27. We discussed a weight loss strategy that will lose weight at a rate of one half of a pound per week. 5 . H iatal hernia - K44.9 N otes :He has had very little reflux symptoms lately. Has occasional heartburn is well controlled with jszl-yny-fobfwoy medications. 6 . E ssential hypertension - I10 N otes :His blood pressure today is 139/78. No change in his regimen is needed. Current therapy was continued without change. 7 . F latulence - R14.3 N otes :We discussed his diet and the foods that can cause flatulence. Examination was unremarkable.? Watchfulness did not occur during the examination. He will report back if anything worsens. He will keep a food diary 8 . F ormer smoker - Z87.891 N otes :He is highly motivated not to smoke. He has a plan to prevent relapse in times of stress or illness. Plan: * Treatment: 2. H yperlipemia L AB: PROFILE, FASTING (COMPREHENSIVE METABOLIC) L AB: PSA, TOTAL L AB: CBC WITH AUTO DIFF L AB: Lipid Panel 3. O verweight (BMI 25.0-29.9) L AB: PROFILE, FASTING (COMPREHENSIVE METABOLIC) L AB: PSA, TOTAL L AB: CBC WITH AUTO DIFF L AB: Lipid Panel 4. O thers Continue hydroCHLOROthiazide Capsule, 12.5 MG, TAKE 1 CAPSULE BY MOUTH EVERY DAY, Orally, Once a day; C ontinue Losartan Potassium Tablet, 50 MG, TAKE 1 TABLET BY MOUTH DAILY; C ontinue Simvastatin Tablet, 40 MG, TAKE 1 TABLET BY MOUTH EVERY DAY IN THE EVENING; C ontinue Ibuprofen Tablet, 200 MG, 2 tablets with food or milk as needed, Orally, Three times a day as needed. * Procedure Codes: * Preventive Medicine: Counseling: C are goal follow-up plan: Counseling for abnormal BMI given Y es Above Normal BMI Follow-up D ietary management education, guidance, and counseling, Dietary needs education, Exercise promotion: strength training, Exercise promotion: stretching, Feeding regime, Giving encouragement to exercise, Lifestyle education regarding diet, Nutrition / feeding management, Nutrition therapy, Prescribed activity/exercise education, Prescribed diet education, Prescribed dietary intake, Special diet education, Weight monitoring , Intervention, Order not done: Medical or Other reason not done * Follow Up: A s Schedule, Annual visit in November (Reason: Annual Exam, Annual check-up) * Images: * Sign off status: Completed true * Provider: Kaylie Brandt MD Date: 0 03/28/2024 Generated for Tali smith/Rissa/Tyleritting on: 03/25/2024 10:53 AM EST History and Physical Notes * HPI (History of Present Illness) Category Sub-Category Detail Notes COVID-19 Screening Questions Have you had any new onset fever, chills, cough, congestion, sore throat, shortness of breath, muscle aches?: No Examination Category Sub-Category Detail Notes General Examination GENERAL APPEARANCE: pleasant , well nourished, well developed, in no acute distress, calm and relaxed, overweight, man HEAD: atraumatic, normocep halic EYES: eomi, perrla, anicte jamir, conjugate EARS: normal NOSE: septum intact NECK/THYROID: no jugular venous di stention, no carotid bruit, thyroid normal HEART: no clicks, gallops, murmurs, or rubs, regular rhythm, S1, S2 normal, no s3, or vascular bruits LUNGS: clear to auscultatio n ABDOMEN: bowel sounds normal, no ascites, no organomegaly, no mass, overweight NEUROLOGIC: alert and oriented, cranial nerves 2-12 grossly intact, deep tendon reflexes 2+ symmetrical, motor strength normal upper and lower extremities, sensory exam intact SKIN: no suspicious lesion s, anicteric PERIPHERAL PULSES: normal BREASTS: no masses palpable b ilaterally MUSCULOSKELETAL: extremities unremark able, no clubbing, cyanosis or edema LYMPH NODES: no enlarged lymph no gustavo,spleen normal RECTAL EXAM: not examined PSYCH: alert, oriented ORAL CAVITY: normal, unremarkable
--- OUTSIDE RECORDS SUMMARY | 2024-05-14 04:45 | XMS_ITS ---
Author Organization Blu Brandt III, MD Address [address] [address] Care Team Providers Care Power Truck Driver Name Role Phone Dr. Blu Brandt III Primary Care Provider Allergies Allergen (clinical drug ingredient) Drug/Non Drug [...] Problem Status W/U Status Risk Notes Problem [id number] Acute blepharitis (H01.009) Active confirmed He has [...] Date Provider Diagnosis Blu Brandt III, MD [address] [place] [address] [facility] [address] 05/14/2024 Blu Brandt BPH (benign prostati c [...] Has occasional heartburn is well controlled with jfxf-sbb-fdvwxxk medications. 05/14/2024 Former smoker (ICD-10 - Z87.891) [...] Provider Name:Blu Brandt , 05/01/2025 09:15:00 AM, [address] [place] [address] [address], [place], [address], Provider Name:Blu Brandt , 12/04/2025 02:00:00 PM, [address] [place] [address] [address], [address], Progress Notes * HEATHER MULLINSDOB:1955 (69 yo M)Acc No.[id number]:05/14/2024 Progress Notes Patient: HEATHER GRANDE Provider: Kaylie Brandt MD :1955 A ge:69 Y S ex:Male Date:05/14/2024 Address: [address], [facility], [id number] Subjective: * Chief Complaints: * R ight [...] a daughter Radha. He was born in [place], [place] and has been in [place] for 34 years. He is retired. He [...] Has occasional heartburn is well controlled with ynpi-jac-hazonej medications. 6 . F ormer smoker - [...] 05/14/2024 Generated for Tali smith/Rissa/Tyleritting on: 1 03/25/2024 10:52 AM EST History and Physical Notes * [...]
--- OUTSIDE RECORDS SUMMARY | 2024-05-23 05:15 | XMS_ITS ---
Author Organization Blu Brandt III, MD Address [address] [address] Care Team Providers Care Composing Room Supervisor Name Role Phone Dr. Blu Brandt III Primary Care Provider [phone] Allergies Allergen (clinical drug ingredient) Drug/Non Drug [...] Date Provider Diagnosis Blu Brandt III, MD [address] [place] [address] [place] [address] 05/23/2024 Blu Brandt BPH (benign prostati c [...] Provider Name:Blu Brandt , 05/01/2025 09:15:00 AM, [address] [place] [address] [address], [place], [address], Provider Name:Blu Brandt , 12/04/2025 02:00:00 PM, [address] [place] [address] [address], [place], [address], Progress Notes * HEATHER MULLINSDOB:1955 (69 yo M)Acc No.[id number]:05/23/2024 Patient: HEATHER GRANDE Provider: Kaylie Brandt MD :1955 A ge:69 Y S ex:Male Date:05/23/2024 Address: [address], [facility], [id number] Subjective: * Chief Complaints: * R esolved [...] of provider rendering services: { ...} [address] [facility] [address] L ocation of patient: yamini ddress listed [...] a daughter Radha. He was born in [place], [place] and has been in [place] [...] off status: Completed true * Provider: Kaylie Brnadt MD Date: 0 05/23/2024 Generated for Tali smith/Rissa/Tyleritting on: 1 03/25/2024 10:52 AM EST History and Physical Notes * HPI (History of Present Illness) Category Sub-Category Detail Notes Telehealth Location of [facility] rendering services:: {...} [address] [facility] [address] Location of patient:: address listed in demographics [...]
--- OUTSIDE RECORDS SUMMARY | 2024-08-29 05:00 | XMS_ITS ---
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 Blu Brandt III Primary Care Provider Allergies Allergen (clinical drug ingredient) Drug/Non Drug Allergy documented on EMR Reaction Allergy Type Onset Date Status No Known Drug Allergy Unknown Drug Allergy Active Reason For Referral Reason Evaluate and Treat Scalp Folliculitis Diagnosis 1 Folliculitis (L73.9) Referral Organization Blu Brandt III, MD Referring Provider First Name Blu Referring Provider Last Name Rikki Referring Provider Speciality Internal M edicine Referred Provider [facility] [place], & [facility] ([place]) Referred Provider Specialty Dermatology General Notes Emely Melgoza 09/01/2024 01:50:20 PM > Cover sheet, progress note and referral faxed. Referral Priority Routine Referral Appointment Date 09/03/2024 REASON FOR VISIT folliculitis of scalp, Leukopenia, Hyperlipidemia, Hypertension, Benign prostatic hypertrophy Medications Medication SIG (Take, Route, Frequency, Duration) Notes Start Date End Date Status Sildenafil Citrate 20 MG 1 tablet Orally Once a day 04/21/2022 Active Cyclobenzaprine HCl 10 MG 1 tablet at be dtime as needed Orally three times a day 11/29/2022 Active Ibuprofen 200 MG 2 tablets with food or milk as needed Orally Three times a day as needed 12/08/2022 Active Fish Oil 1000 MG 1 capsule Orally Onc e a day Active Doxycycline Hyclate 100 MG 1 tablet Oral ly twice a day 05/14/2024 Active Losartan Potassium 50 MG TAKE 1 TABLET B Y MOUTH DAILY Active Simvastatin 40 MG TAKE 1 TABLET BY NANCY TH EVERY DAY IN THE EVENING Active hydroCHLOROthiazide 12.5 MG TAKE 1 CAPSU [...] Problem Status W/U Status Risk Notes Problem [id number] Folliculitis (L73.9) Active confirmed A second dermatological opinion has been arranged. Current therapy was continued for now. Vital Signs Temperature 98.6 degrees Fahrenheit 08/30/19 25 Blood pressure systolic 133 mm Hg 08/30/19 25 Blood pressure diastolic 83 mm Hg 025 Heart Rate 60 /min 08/29/2024 Height 68 in 08/29/2024 Weight 175 lbs 08/29/2024 BMI 26.61 kg/m2 08/29/2024 Encounters Encounter Location Date Provider Diagnosis Blu Brandt III, MD [address] [place] [address] [place] [address] 08/29/2024 Blu Brandt BPH (benign prostati c hyperplasia) N40.0 ; Folliculitis L73.9 ; Hyperlipemia E78.5 ; Overweight (BMI 25.0-29.9) E66.3 ; Leukopenia, unspecified decreased WBC count D72.819 ; Hiatal hernia K44.9 ; Benign cyst of left kidney N28.1 ; Essential hypertension I10 and Former smoker Z87.891 Assessments Encounter Date Diagnosis (ICD Code) Assessment Notes Treatment Notes Treatment Clinical Notes 08/29/2024 BPH (benign prostatic hyperplasia) (ICD-10 - N40.0) He arises from sleep once a night to urinate. We have discussed lifestyle modification as a way to reduce nocturia. 08/29/2024 Folliculitis (ICD-10 - L73.9) A second dermatological opinion has been arranged. Current therapy was continued for now. 08/29/2024 Hyperlipemia (ICD-10 - E78.5) Comprehensive bblood work with a fasting lipid profile has been ordered. His medications will be adjusted if necessary. 08/29/2024 Overweight (BMI 25.0-29.9) (ICD-10 - E66.3) He is slightly overweight with a body mass index of 26. We made a plan to lose weight at a rate of one half of a pound per week. 08/29/2024 Leukopenia, unspecified decreased WBC count (ICD-10 - D72.819) He has had no infections. Conference of blood work with a white blood cell count and differential ordered today. 08/29/2024 Hiatal hernia (ICD-10 - K44.9) He has had very little reflux symptoms lately. Has occasional heartburn is well controlled with kajd-msc-qvpzjmz medications. 08/29/2024 Benign cyst of left kidney (ICD-10 - N28.1) There is a mildly complex cysts in the kidney. He is referred back to primary care for evaluation of this. 08/29/2024 Essential hypertension (ICD-10 - I10) His blood pressure today is stable. No change in his regimen is needed. Current therapy was continued without change. 08/29/2024 Former smoker (ICD-10 - Z87.891) He is highly motivated not to smoke. He has a plan to prevent relapse in times of stress or illness. Plan Of Treatment Medication Medication Name Sig Start Date Stop Date Notes Sildenafil Citrate 20 MG 1 tablet Orally Once a day 2022 Cyclobenzaprine HCl 10 MG 1 tablet at be dtime as needed Orally three times a day 11/29/2022 Ibuprofen 200 MG 2 tablets with food or milk as needed Orally Three times a day as needed 12/08/2022 Fish Oil 1000 MG 1 capsule Orally Once a day Doxycycline Hyclate 100 MG 1 tablet Orally twice a day 02/2025 Losartan Potassium 50 MG TAKE 1 TABLET BY MOUTH DAILY Simvastatin 40 MG TAKE 1 TABLET BY NANCY TH EVERY DAY IN THE EVENING hydroCHLOROthiazide 12.5 MG TAKE 1 CAPSU LE BY MOUTH EVERY DAY Orally Once a day Pending Test Test Name Order Date PROFILE, FASTING (COMPREHENSIVE METABOLI C) 08/29/2024 PSA, TOTAL 08/29/2024 CBC w DIFF 08/29/2024 Lipid Panel 08/29/2024 Referrals Referral Date Details 08/29/2024 08/29/2024, Evaluate and Treat Scalp Folliculitis[facility] Next Appt Details Follow Up: As Scheduled, Marisabel son: Annual Exam Provider Name:Blu Larane , 05/01/2025 09:15:00 AM, [address] [facility] [facility], [place], [phone], Provider Name:Blu Morris Rikki , 12/04/2025 02:00:00 PM, [address] [facility], [place], [phone], Progress Notes * HEATHER MULLINSDOB:1955 (69 yo M)Acc No.[id number]:08/29/2024 Progress Notes Patient: HEATHER GRANDE Provider: Kaylie Brandt MD :1955 A ge:69 Y S ex:Male Date:08/29/2024 Address:[address] [place] [address] , [id number] Subjective: * Chief Complaints: * F olliculitis of scalpLeukopeniaHyperlipidemiaHypertensionBenign prostatic hypertrophy * HPI: C OVID-19 Screening: In the past he complained of infection in his scalp and diffuse folliculitis was noted with areas of swelling. He was referred to dermatology. They have tried oral antibiotics and creams but he still has the problem. He is requesting a referral to another paper bag maker for a second opinion. We have arranged this. His vital signs are stable today. He denies any nocturia. His esophageal reflux symptoms are well controlled. Questions H ave you had any new onset fever, chills, cough, congestion, sore throat, shortness of breath, muscle aches? N o * ROS: G eneral/Constitutional: pain o nly [...] appetite d enies.?Diarrhea d enies. H eartburn c ontrolled with medications. N ausea d enies.?Rectal bleeding d enies. V omiting d enies. H ematology: bruising d enies. p etechiae d enies. S wollen glands n one have been noted. G enitourinary: Frequent urination d enies. M usculoskeletal: Muscle aches d enies. P ainful joints d enies. S ciatica d enies. W eakness d enies. S kin: Itching d enies. R edenilson d enies. S kin lesion(s)?Continued lumps and bleeding on scalp. N eurologic: Difficulty speaking d enies. D [...] a daughter Radha. He was born in [place], [place] and has been in [place] for 34 years. He is retired. He [...] Tablet 1 tablet Orally twice a day Medication List reviewed and reconciled [...] Tablet 1 tablet Orally twice a day Medication List reviewed and reconciled with the patient * Allergies: N o Known Drug Allergyno[Allergies Verified] Objective: * Vitals: H t: 68, Wt:175, BMI:26.61, BP:133/83, HR:60, Temp:98.6, Ht-cm: 172.72, Wt-k.38. * Examination: G eneral Examination: GENERAL APPEARANCE: p leasant, well nourished, well developed, in no acute distress, calm and relaxed, overweight, man. HEAD: a traumatic, normocephalic, Moderate radiculitis posterior occipital scalp within the hair. EYES: e odin, perrla, anicteric, conjugate. EARS: [...] a lert, oriented. Assessment: * Assessment: 1. F olliculitis - L73.9 (Primary) N otes :A second dermatological opinion has been arranged. Current therapy was continued for now. 2 . B PH (benign prostatic hyperplasia) - N40.0 N otes :He arises from sleep once a night to urinate. We have discussed lifestyle modification as a way to reduce nocturia. 3 . H yperlipemia - E78.5 N otes :Comprehensive bblood work with a fasting lipid profile has been ordered. His medications will be adjusted if necessary. 4 . O verweight (BMI 25.0-29.9) - E66.3 N otes :He is slightly overweight with a body mass index of 26. We made a plan to lose weight at a rate of one half of a pound per week. 5 . L eukopenia, unspecified decreased WBC count - D72.819 N otes :He has had no infections. Conference of blood work with a white blood cell count and differential ordered today. 6 . H iatal hernia - K44.9 N otes :He has had very little reflux symptoms lately. Has occasional heartburn is well controlled with jiqu-xcb-jmhgoos medications. 7 . B enign cyst of left kidney - N28.1 N otes :There is a mildly complex cysts in the kidney. He is referred back to primary care for evaluation of this. 8 . E ssential hypertension - I10 N otes :His blood pressure today is stable. No change in his regimen is needed. Current therapy was continued without change. 9 . F ormer smoker - Z87.891 N otes :He is highly motivated not to smoke. He has a plan to prevent relapse in times of stress or illness. Plan: * Treatment: 2. B PH (benign prostatic hyperplasia) Continue Fish Oil Capsule, 1000 MG, 1 capsule, Orally, Once a day; C ontinue Sildenafil Citrate Tablet, 20 MG, 1 tablet, Orally, Once a day; C ontinue Cyclobenzaprine HCl Tablet, 10 MG, 1 tablet at bedtime as needed, Orally, three times a day; C ontinue Doxycycline Hyclate Tablet, 100 MG, 1 tablet, Orally, twice a day. L AB: PROFILE, FASTING (COMPREHENSIVE METABOLIC) L AB: PSA, TOTAL L AB: CBC w DIFF L AB: Lipid Panel 3. H yperlipemia L AB: PROFILE, FASTING (COMPREHENSIVE METABOLIC) L AB: PSA, TOTAL L AB: CBC w DIFF L AB: Lipid Panel 4. O verweight (BMI 25.0-29.9) L AB: PROFILE, FASTING (COMPREHENSIVE METABOLIC) L AB: PSA, TOTAL L AB: CBC w DIFF L AB: Lipid Panel 5. O thers Continue hydroCHLOROthiazide Capsule, 12.5 MG, [...] Follow-up D ietary management education, guidance, and counseling S moking/Tobacco Use Patient counseled on the dangers of tobacco use and urged to quit. 0 08/29/2024 * Follow Up: A s Scheduled (Reason: Annual Exam) * Images: * Sign off status: Completed true * Provider: Kaylei Brandt MD Date: 0 08/29/2024 Generated for Tali smith/Rissa/Tyleritting on: 03/25/2024 10:51 AM EST History and Physical Notes * [...] and relaxed, overweight, man HEAD: atraumatic, normocep halic, Moderate radiculitis posterior occipital scalp within the hair EYES: eomi, perrla, anicte jamir, conjugate EARS: [...] PSYCH: alert, oriented ORAL CAVITY: normal, unremarkable Consultation Request Notes Referral Date Referring Provider Referred Provider Not es 08/29/2024 [facility] Evaluate and Treat Scalp Folliculitis
--- OUTSIDE RECORDS SUMMARY | 2024-11-04 08:45 | XMS_ITS ---
Author Organization Blu Brandt III, MD Address [address] [place] [address] Care Team Providers Care Canine Service Teacher Name Role Phone Dr. Blu Brandt III [...] Problem Status W/U Status Risk Notes Problem [id number] Contusion of sole of right foot (S90.31XA) [...] Provider Diagnosis Blu Brandt III, MD [address] [place] [address] [place] [address] 11/04/2024 Blu Brandt BPH (benign prostati c [...] Name:Blu Brandt , 05/01/2025 09:15:00 AM, [address] [place] [address] [address], [place], [address], Provider Name:Blu Brandt , 12/04/2025 02:00:00 PM, [address] [place] [address] [address], [place], [address], Progress Notes * HEATHER MULLINSDOB:1955 (69 yo M)Acc No.[id number]:11/04/2024 Patient: HEATHER GRANDE Provider: Kaylie Brandt MD :1955 A ge:69 Y S ex:Male Date:11/04/2024 Address: [address], [place] , [id number] Subjective: * Chief Complaints: * L eft [...] and swelling on the bottom of his power press tender to touch and painful with weightbearing. [...] a daughter Radha. He was born in [place], [place] and has been in [place] [...] 0 11/04/2024 Generated for Tali smith/Rissa/Madelynsmitting on: 1 03/25/2024 10:53 AM EST History and Physical [...]
--- OUTSIDE RECORDS SUMMARY | 2024-11-10 08:18 | XMS_ITS ---
Author Organization Blu Brandt III, MD Address [address] [facility] [address] Care Team Providers Care Relocation Counselor Name Role Phone Dr. Blu Brandt III Primary Care Provider REASON FOR VISIT Message Social History Sex Assigned At : Social History Observation Description Sex Assigned At Male Encounters Encounter Location Date Provider Diagnosis Blu Brandt III, MD [address] [place] [address] [place] [address] 11/10/2024 Blu Brandt Plan Of Treatment Next Appt Details Provider Name:Blu Brandt , 05/01/2025 09:15:00 AM, [address] [place] [address] [place], [address], Provider Name:Blu Brandt , 12/04/2025 02:00:00 PM, [address] [place] [address] [place], [address], Progress Notes * HEATHER MULLINSDOB:1955 (69 yo M)Acc No.[id number]:11/10/2024 Patient: HEATHER GRANDE :1955 A ge:69 Y S ex:Male Address:[address] [place], [address] * true * Date: Generated for Printi ng/Faxing/eTransmitting on: 03/25/2024 10:52 AM EST
--- OUTSIDE RECORDS SUMMARY | 2024-11-10 09:06 | XMS_ITS ---
Author Organization Blu Brandt III, MD Address [address] [place] [address] [place] [address] Care Team Providers Care Textiles Sales Representative Name Role Phone Dr. Blu Brandt III Primary Care Provider Medications Medication SIG (Take, Route, Fr equency, Duration) Notes Start Date End Date Status Meloxicam 15 MG 1 tablet Orally Once a day for 30 days 11/10/2024 03/09/2025 Active Social History Sex Assigned At : Social History Observation Description Sex Assigned At Male Encounters Encounter Location Date Provider Diagnosis Blu Brandt III, MD [address] [place] [address] [place] [address] 11/10/2024 Blu Brandt Plan Of Treatment Medication Medication Name Sig Start Date Stop Date Notes Meloxicam 15 MG 1 tablet Orally Once a day for 30 days 10/202403/09/2025 Next Appt Details Provider Name:Blu Brandt , 05/01/2025 09:15:00 AM, [address] [place] [address] [place], [address], Provider Name:Blu Brandt , 12/04/2025 02:00:00 PM, [address] [place] [address] [place], [address], Progress Notes * HEATHER MULLINSDOB:1955 (69 yo M)Acc No.[id number]:11/10/2024 Patient: Lacey ALBERT HEATHER :1955 A ge:69 Y S ex:Male Address: [address] [place], [address] * Refills Start Meloxicam Tablet, 15 MG, Orally, 30, 1 tablet, Once a day, 30 days, Refills=3 * true * Date: Generated for Tali smith/Rissa/Bernadette on: 03/25/2024 10:52 AM EST
--- OUTSIDE RECORDS SUMMARY | 2024-12-02 09:30 | XMS_ITS ---
Author Organization Blu Brandt III, MD Address [address] [place] [address] Care Team Providers Care Religious Healer Name Role Phone Dr. Blu Brandt III Primary Care Provider Allergies Allergen (clinical drug ingredient) Drug/Non Drug Allergy documented on EMR Reaction Allergy Type Onset Date Status No Known Drug Allergy Unknown Drug Allergy Active No Known Food Allergy Unknown Drug Allergy Active REASON FOR VISIT Annual visit Medications Medication SIG (Take, Route, Frequency, Duration) Notes Start Date End Date Status Simvastatin 40 MG TAKE 1 TABLET BY NANCY TH EVERY DAY every EVENING Orally Once a day Active Cyclobenzaprine HCl 10 MG 1 tablet at be dtime as needed Orally three times a day 11/29/2022 Active Fish Oil 1000 MG 1 capsule Orally Onc e a day Active Sildenafil Citrate 20 MG 1 tablet Orally Once a day 04/21/2022 Active hydroCHLOROthiazide 12.5 MG TAKE 1 CAPSU LE BY MOUTH EVERY DAY Orally Once a day Active Losartan Potassium 50 MG TAKE 1 TABLET B Y MOUTH DAILY Active Ibuprofen 200 MG 2 tablets with [...] Problem Status W/U Status Risk Notes Problem [id number] Left foot pain (M79.672) Active confirmed He is slowly improving. The x-ray showed no fracture. He may need to go to podiatry if it does not resolve. Vital Signs Temperature 97.8 degrees Fahrenheit 12/03/19 25 Blood pressure systolic 124 mm Hg 12/03/19 25 Blood pressure diastolic 72 mm Hg 025 Heart Rate 83 /min 12/02/2024 Height 68 in 12/02/2024 Weight 170 lbs 12/02/2024 BMI 25.85 kg/m2 12/02/2024 Encounters Encounter Location Date Provider Diagnosis Blu Brandt III, MD [address] [place] [address] [place] [address] 12/02/2024 Blu Brandt BPH (benign prostati c hyperplasia) N40.0 ; Essential hypertension I10 ; Former smoker Z87.891 ; Overweight (BMI 25.0-29.9) E66.3 ; Hyperlipemia E78.5 ; Leukopenia, unspecified decreased WBC count D72.819 and Left foot pain M79.672 Assessments Encounter Date Diagnosis (ICD Code) Assessment Notes Treatment Notes Treatment Clinical Notes 12/02/2024 BPH (benign prostatic hyperplasia) (ICD-10 - N40.0) He arises from sleep once a night to urinate. We have discussed lifestyle modification as a way to reduce nocturia. 12/02/2024 Essential hypertension (ICD-10 - I10) His blood pressure today is stable. No change in his regimen is needed. Current therapy was continued without change. 12/02/2024 Former smoker (ICD-10 - Z87.891) He is highly motivated not to smoke. He has a plan to prevent relapse in times of stress or illness. 12/02/2024 Overweight (BMI 25.0-29.9) (ICD-10 - E66.3) He is slightly overweight with a body mass index of 26. We made a plan to lose weight at a rate of one half of a pound per week. 12/02/2024 Hyperlipemia (ICD-10 - E78.5) Current fasting lipid profile shows good control of his lipids. No change in his regimen as necessary. 12/02/2024 Leukopenia, unspecified decreased WBC count (ICD-10 - D72.819) He has had no infections. Conference of blood work with a white blood cell count and differential ordered today. 12/02/2024 Left foot pain (ICD-10 - M79.672) He is slowly improving. The x-ray showed no fracture. He may need to go to podiatry if it does not resolve. Plan Of Treatment Medication Medication Name Sig Start Date Stop Date Notes Simvastatin 40 MG TAKE 1 TABLET BY NANCY TH EVERY DAY every EVENING Orally Once a day Cyclobenzaprine HCl 10 MG 1 tablet at be dtime as needed Orally three times a day 11/29/2022 Fish Oil 1000 MG 1 capsule Orally Once a day Sildenafil Citrate 20 MG 1 tablet Orally Once a day 2022 hydroCHLOROthiazide 12.5 MG TAKE 1 CAPSU LE BY MOUTH EVERY DAY Orally Once a day Losartan Potassium 50 MG TAKE 1 TABLET BY MOUTH DAILY Ibuprofen 200 MG 2 tablets with food or milk as needed Orally Three times a day as needed 12/08/2022 Next Appt Details Follow Up: 3 Weeks, Reason: Telehealth Provider Name:Blu Brandt , 05/01/2025 09:15:00 AM, [address] [place] [address] [address], [place], [address], Provider Name:Blu Brandt , 12/04/2025 02:00:00 PM, [address] [place] [address] [address], [place], [address], Progress Notes * HEATHER MULLINSDOB:1955 (69 yo M)Acc No.[id number]:12/02/2024 Progress Notes Patient: HEATHER GRANDE Provider: Kaylie Brandt MD :1955 A ge:69 Y S ex:Male Date:12/02/2024 Address: [address], [place], [id number] Subjective: * Chief Complaints: * A nnual visit * HPI: D epression Screening: He returns at the age of 69 for his annual visit. On his last visit in the beginning of November he had injured his left foot and it was painful. It continues to be painful with weightbearing but it has improved. It appeared to be healing slowly. Examination showed no significant abnormalities he is going to rest it as much as possible and minimize prolonged standing and weightbearing. He will be referred to podiatry if needed or to orthopedics. He has no other new complaints today. He is followed here for hypertension, Chronic leukopenia, hyperlipidemia and benign prostatic hypertrophy. He has been compliant with all of his treatments. He has no new complaints. PHQ-9 L ittle interest or pleasure in doing things?Not at all F eeling down, depressed, or hopeless N ot at all T rouble falling or staying asleep, or sleeping too much N ot at all F eeling tired or having little energy N ot at all P oor appetite or overeating N ot at all F eeling bad about yourself or that you are a failure, or have let yourself or your family down N ot at all T rouble concentrating on things, such as reading the newspaper or watching television N ot at all M oving or speaking so slowly that other people could have noticed; or the opposite, being so fidgety or restless that you have been moving around a lot more than usual N ot at all T houghts that you would be better off or of hurting yourself in some way N ot at all T otal Score 0 C OVID-19 Screening: Questions H ave you had any new onset fever, chills, cough, congestion, sore throat, shortness of breath, muscle aches? N o F all Risk Screening: Fall History H ave you had any falls with injury in the past year? N o H ave you had two or more falls in the past year? N o F all Risk Assessment: N o falls in the past year S JOE Questions: SDOH Questions I n the past year have you or any family members you live with been unable to get any of the following when it was really needed? Check all that apply: D ecline to answer * ROS: G eneral/Constitutional: pain L eft foot improved but still present with weightbearing. C jeremiah , denies. F atigue a dmits. F ever d enies. E [...] Muscle aches d enies. P ainful joints B ottom of left foot. S ciatica d enies. W eakness d [...] Tobacco non-user E x-cigarette smoker amount unknown D rugs/Alcohol: D rugs H ave you used drugs other than those for medical reasons in the past 12 months? N o D rug/Alcohol: A LEDA-C (Standard) D id you have a drink containing alcohol in the past year? N o P oints 0 I nterpretation N egative Fred chacon has a daughter Radha. He was born in [place], [place] and has been in [place] for 34 years. He is retired. He [...] DAY every EVENING Orally Once a day DiscontinuedMeloxicam 15 MG Tablet 1 tablet Orally Once a day , stop date 03/09/2025Medication List reviewed and reconciled with the patientDiscontinued Meloxicam 15 MG Tablet 1 tablet Orally Once a day , stop date 03/09/2025Medication List reviewed and reconciled with the patient * Allergies: N o Known Drug AllergyNo Known Food Allergyno[Allergies Verified] Objective: * Vitals: H t: 68, Wt:170, BMI:25.85, BP:124/72, HR:83, Temp:97.8, Ht-cm: 172.72, Wt-k.11. * P ast Orders: Lab:Complete Blood Count Aut o Diff * Collection Date 11/15/2024 03/22/2024 07/28/2023 Collection Time 09:38 AM 07:48 AM 07:50 AM Order Date 11/15/2024 03/22/2024 07/28/2023 White Blood Count 3.8 L (Ref Range: 4.8-10.8 X10*3/uL) 3.6 L (Ref Range: 4.8-10.8 X10*3/uL) 3.2 L (Ref Range: 4.8-10.8 X10*3/uL) Red Blood Count 4.63 (Ref Range: 4.60-5.80 X10*6/uL) 5.00 (Ref Range: 4.60-5.80 X10*6/uL) 4.87 (Ref Range: 4.60-5.80 X10*6/uL) Hemoglobin 14.7 (Ref Range: 14.0-18.0 g/dl) 16.0 (Ref Range: 14.0-18.0 g/dl) 15.6 (Ref Range: 14.0-18.0 g/dl) Hematocrit 43.5 (Ref Range: 42.0-52.0 %) 46.3 (Ref Range: 42.0-52.0 %) 45.9 (Ref Range: 42.0-52.0 %) Mean Corpuscular Volume 94.0 (Ref Range: 80.0-98.0 fL) 92.6 (Ref Range: 80.0-98.0 fL) 94.3 (Ref Range: 80.0-98.0 fL) Mean Corpuscular Hemoglobin 31.7 (Ref Range: 27.0-33.0 pg) 32.0 (Ref Range: 27.0-33.0 pg) 32.0 (Ref Range: 27.0-33.0 pg) Mean Corpuscular HGB Conc 33.8 (Ref Range: 31.0-36.0 g/dl) 34.6 (Ref Range: 31.0-36.0 g/dl) 34.0 (Ref Range: 31.0-36.0 g/dl) Red Cell Distribution Width 12.2 (Ref Range: 11.0-16.0 %) 12.7 (Ref Range: 11.0-16.0 %) 12.4 (Ref Range: 11.0-16.0 %) Platelet Count 162 (Ref Range: 160-400 X10*3/uL) 197 (Ref Range: 160-400 X10*3/uL) 170 (Ref Range: 160-400 X10*3/uL) Mean Platelet Volume 10.3 (Ref Range: 9.4-12.4 fL) 10.7 (Ref Range: 9.4-12.4 fL) 10.5 (Ref Range: 9.4-12.4 fL) Neutrophils Percent Auto 45.9 (Ref Range: 45-73 %) 39.6 L (Ref Range: 45-73 %) 34.4 L (Ref Range: 45-73 %) Imm Gran Pct Auto 0.0 (Ref Range: 0.0-0.4 %) 0.3 (Ref Range: 0.0-0.4 %) 0.3 (Ref Range: 0.0-0.4 %) Lymphocytes Percent Auto 43.6 H (Ref Range: 20-40 %) 46.8 H (Ref Range: 20-40 %) 54.6 H (Ref Range: 20-40 %) Monocytes Percent Auto 8.9 (Ref Range: 2-11 %) 10.5 (Ref Range: 2-11 %) 8.5 (Ref Range: 2-11 %) Eosinophils Percent Auto 0.8 (Ref Range: 0-4 %) 1.7 (Ref Range: 0-4 %) 1.6 (Ref Range: 0-4 %) Basophils Percent Auto 0.8 (Ref Range: 0-2 %) 1.1 (Ref Range: 0-2 %) 0.6 (Ref Range: 0-2 %) NRBC Pct Auto 0.0 (Ref Range: 0.0-0.2 /100WBC) 0.0 (Ref Range: 0.0-0.2 /100WBC) 0.0 (Ref Range: 0.0-0.2 /100WBC) Neutrophils Absolute Auto 1.8 L (Ref Range: 2.0-8.3 x10*3/uL) 1.4 L (Ref Range: 2.0-8.3 x10*3/uL) 1.1 L (Ref Range: 2.0-8.3 x10*3/uL) Imm Gran Abs Auto 0.00 (Ref Range: 0.00-0.03 X10*3/uL) 0.01 (Ref Range: 0.00-0.03 X10*3/uL) 0.01 (Ref Range: 0.00-0.03 X10*3/uL) Lymphocytes Absolute Auto 1.7 (Ref Range: 1.2-4.9 X10*3/uL) 1.7 (Ref Range: 1.2-4.9 X10*3/uL) 1.7 (Ref Range: 1.2-4.9 X10*3/uL) Monocytes Absolute Auto 0.3 (Ref Range: 0.1-1.2 X10*3/uL) 0.4 (Ref Range: 0.1-1.2 X10*3/uL) 0.3 (Ref Range: 0.1-1.2 X10*3/uL) Eosinophils Absolute Auto 0.0 (Ref Range: 0.0-0.4 X10*3/uL) 0.1 (Ref Range: 0.0-0.4 X10*3/uL) 0.1 (Ref Range: 0.0-0.4 X10*3/uL) Basophils Absolute Auto 0.0 (Ref Range: 0.0-0.2 X10*3/uL) 0.0 (Ref Range: 0.0-0.2 X10*3/uL) 0.0 (Ref Range: 0.0-0.2 X10*3/uL) NRBC Abs Auto 0.000 (Ref Range: 0.0-0.012 X10*3/uL) 0.000 (Ref Range: 0.0-0.012 X10*3/uL) 0.000 (Ref Range: 0.0-0.012 X10*3/uL) * Lab:[facility] * Collection Date 11/15/2024 03/22/2024 07/28/2023 Collection Time 09:38 AM 07:48 AM 07:50 AM Order Date 11/15/2024 03/22/2024 07/28/2023 Sodium 144 (Ref Range: 135-145 mmol/L) 141 (Ref Range: 135-145 mmol/L) 143 (Ref Range: 135-145 mmol/L) Bilirubin Total 0.6 (Ref Range: 0.0-1.0 mg/dL) 1.0 (Ref Range: 0.0-1.0 mg/dL) 0.7 (Ref Range: 0.0-1.0 mg/dL) Aspartate Amino Transferase 21 (Ref Range: 5-37 U/L) 21 (Ref Range: 5-37 U/L) 16 (Ref Range: 5-37 U/L) Alanine Aminotransferase 14 (Ref Range: 0-40 U/L) 16 (Ref Range: 0-40 U/L) 14 (Ref Range: 0-40 U/L) Total Protein 6.9 (Ref Range: 6.5-8.0 g/dL) 7.9 (Ref Range: 6.5-8.0 g/dL) 7.1 (Ref Range: 6.5-8.0 g/dL) Albumin Level 4.6 (Ref Range: 3.5-5.0 g/dL) 4.6 (Ref Range: 3.5-5.0 g/dL) 4.3 (Ref Range: 3.5-5.0 g/dL) Alkaline Phosphatase 73 (Ref Range: 39-117 U/L) 90 (Ref Range: 39-117 U/L) 76 (Ref Range: 39-117 U/L) Potassium 4.5 (Ref Range: 3.3-5.1 mmol/L) 4.1 (Ref Range: 3.3-5.1 mmol/L) 4.0 (Ref Range: 3.3-5.1 mmol/L) Chloride 108 (Ref Range: 96-108 mmol/L) 106 (Ref Range: 96-108 mmol/L) 106 (Ref Range: 96-108 mmol/L) Carbon Dioxide 29 (Ref Range: 22-29 mmol/L) 29 (Ref Range: 22-29 mmol/L) 29 (Ref Range: 22-29 mmol/L) Anion Gap 12 (Ref Range: 12-20) 10 L (Ref Range: 12-20) 12 (Ref Range: 12-20) Blood Urea Nitrogen 22 H (Ref Range: 9-16 mg/dL) 16 (Ref Range: 9-16 mg/dL) 17 H (Ref Range: 9-16 mg/dL) Creatinine 0.87 (Ref Range: 0.5-1.4 mg/dL) 0.84 (Ref Range: 0.5-1.4 mg/dL) 0.86 (Ref Range: 0.5-1.4 mg/dL) Estimated Glomerular Filt Rate > 60 > 60 > 60 Glucose Fasting 99 (Ref Range: 60-99 mg/dL) 111 H (Ref Range: 60-99 mg/dL) 110 H (Ref Range: 60-99 mg/dL) Calcium 9.2 (Ref Range: 8.4-10.2 mg/dL) 9.6 (Ref Range: 8.4-10.2 mg/dL) 9.5 (Ref Range: 8.4-10.2 mg/dL) * Lab:Lipid Panel * Collection Date 11/15/2024 03/22/2024 07/28/2023 Collection Time 09:38 AM 07:48 AM 07:50 AM Order Date 11/15/2024 11/30/2023 07/28/2023 Triglycerides 83 (Ref Range: <150 mg/dL) 102 (Ref Range: <150 mg/dL) 94 (Ref Range: <150 mg/dL) Cholesterol 164 (Ref Range: <200 mg/dL) 172 (Ref Range: <200 mg/dL) 146 (Ref Range: <200 mg/dL) LDL Cholesterol Calculated 98 (Ref Range: <100 mg/dL) 97 (Ref Range: <100 mg/dL) 80 (Ref Range: <100 mg/dL) HDL Cholesterol 50 (Ref Range: >40 mg/dL) 55 (Ref Range: >40 mg/dL) 48 (Ref Range: >40 mg/dL) Clinical Info: Please fast for 12-14 hours prior to having this labwork done. You may have black coffee or tea with no milk or sugar. May have water,Please have this testing 1 week prior to your next appointment,PLEASE FAX COMPLETED RESULTS TO [phone] * Lab:Prostate Specific Antige n * Collection Date 11/15/2024 03/22/2024 07/28/2023 Collection Time 09:38 AM 07:48 AM 07:50 AM Order Date 11/15/2024 03/22/2024 07/28/2023 Prostate Specific Antigen 1.34 (Ref Range: <0.05-4.0 ng/mL) 1.28 (Ref Range: <0.05-4.0 ng/mL) 1.24 (Ref Range: <0.05-4.0 ng/mL) * Examination: G [...] sounds normal, no ascites, no organomegaly, no mass: overweight. RECTAL EXAM: n ot examined. MUSCULOSKELETAL: e xtremities unremarkable, no clubbing, cyanosis or edema. PERIPHERAL PULSES: n ormal. NEUROLOGIC: a lert and oriented, cranial nerves 2-12 grossly intact, deep tendon reflexes 2+ symmetrical, motor strength normal upper and lower extremities, sensory exam intact. PSYCH: a lert, oriented. Assessment: * Assessment: 1. E ssential hypertension - I10 (Primary) N otes :His blood pressure today is stable. No change in his regimen is needed. Current therapy was continued without change. 2 . B PH (benign prostatic hyperplasia) - N40.0 N otes :He arises from sleep once a night to urinate. We have discussed lifestyle modification as a way to reduce nocturia. 3 . F ormer smoker - Z87.891 N otes :He is highly motivated not to smoke. He has a plan to prevent relapse in times of stress or illness. 4 . O verweight (BMI 25.0-29.9) - E66.3 N otes :He is slightly overweight with a body mass index of 26. We made a plan to lose weight at a rate of one half of a pound per week. 5 . H yperlipemia - E78.5 N otes :Current fasting lipid profile shows good control of his lipids. No change in his regimen as necessary. 6 . L eukopenia, unspecified decreased WBC count - D72.819 N otes :He has had no infections. Conference of blood work with a white blood cell count and differential ordered today. 7 . L eft foot pain - M79.672 N otes :He is slowly improving. The x-ray showed no fracture. He may need to go to podiatry if it does not resolve. Plan: * Treatment: 2. O thers Continue [...] tobacco use and urged to quit. 0 12/02/2024 * Follow Up: 3 Weeks (Reason: Telehealth) * Images: * Sign off status: Completed true * Provider: Kaylie Brandt MD Date: 0 12/02/2024 Generated for Tali smith/Rissa/eTransmitting on: 1 03/25/2024 10:52 AM EST History and Physical Notes * HPI (History of Present Illness) Category Sub-Category Detail Notes Depression Screening PHQ-9 Little inte rest or pleasure in doing things: Not at all Feeling down, depressed, or hopeless: No t at all Trouble falling or staying asleep, or sl eeping too much: Not at all Feeling tired or having little energy: N ot at all Poor appetite or overeating: Not at all Feeling bad about yourself o r that you are a failure, or have let yourself or your family down: Not at all Trouble concentrating on thi ngs, such as reading the newspaper or watching television: Not at all Moving or speaking so slowly that other people could have noticed; or the opposite, being so fidgety or restless that you have been moving around a lot more than usual: Not at all Thoughts that you would be b sai off or of hurting yourself in some way: Not at all Total Score: 0 Fall Risk Screening Fall History Have you had any falls with injury in the past year?: No Have you had two or more falls in the st year?: No Fall Risk Assessment:: No falls in the p year COVID-19 Screening Questions Have you had any new onset fever, chills, cough, congestion, sore throat, shortness of breath, muscle aches?: No SDOH Questions SDOH Questions In the past year have you or any family members you live with been unable to get any of the following when it was really needed? Check all that apply:: Decline to answer Examination Category Sub-Category Detail Notes General Examination [...] sounds normal, no ascites, no organomegaly, no mass: overweight NEUROLOGIC: alert and oriented, cranial nerves [...]
--- OUTSIDE RECORDS SUMMARY | 2024-12-26 12:15 | XMS_ITS ---
Author Organization Blu Brandt III, MD Address [address] [place] [address] Care Team Providers Care Tire Beader Maker Name Role Phone Dr. lBu Brandt III Primary Care Provider REASON FOR VISIT Follow-up Social History Sex Assigned At : Social History Observation Description Sex Assigned At Male Encounters Encounter Location Date Provider Diagnosis Blu Brandt III, MD [address] [place] [address] [place] [address] 12/26/2024 Blu Brandt Plan Of Treatment Next Appt Details Provider Name:Blu Brandt , 05/01/2025 09:15:00 AM, [address] [place] [address] [place], [address], Provider Name:Blu Brandt , 12/04/2025 02:00:00 PM, [address] [place] [address] [place], [address], Progress Notes * HEATHER MULLINSDOB:1955 (69 yo M)Acc No.[id number]:12/26/2024 Progress Notes Patient: HEATHER GRANDE Provider: Kaylie [...] Kaylie Brandt MD Date: Generated for Tali smith/Rissa/Tyleritting on: 03/25/2024 10:51 AM EST
--- OUTSIDE RECORDS SUMMARY | 2025-01-02 04:15 | XMS_ITS ---
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 Blu Brandt III Primary Care Provider [phone] Allergies Allergen (clinical drug ingredient) Drug/Non Drug [...] Last Name Rikki Referring Provider [facility], Orthopedic Surgeons Referred Provider Specialty Orthopedic S urgery General Notes D, 01/05/2025 10:15:01 AM > Referral faxed with progress note Referral Priority Routine Reason Evaluate and Treat Bilateral Foot pain Diagnosis 1 Foot pain (M79.673) Referral Organization Blu Brandt III, MD Referring Provider First Name Blu Referring Provider Last Name Rikki Referring Provider Speciality Internal edicine Referred Provider Podiatry [facility] Referred Provider Specialty Podiatry General Notes [...] Problem Status W/U Status Risk Notes Problem [id number] Pain in left shoulder (M25.512) Active confirmed [...] Provider Diagnosis Blu Brandt III, MD [address] [place] [address] [place] [address] 01/02/2025 Blu Brandt Encounter for immunization Z23 [...] Has occasional heartburn is well controlled with lqhx-siw-atvxvws medications. 01/02/2025 Hyperlipemia (ICD-10 - E78.5) The [...] and Treat Left Should Pain, Orthopedic Surgeons 01/02/2025 01/02/2025, Evaluate and Treat Bilateral Foot pain, [facility] Next Appt Details Follow Up: 4 Months, Reason: OV Provider Name:Blu Brandt , 05/01/2025 09:15:00 AM, [address] [place] [address] [address], [place], [phone], Provider Name:Blu Brandt , 12/04/2025 02:00:00 PM, [address] [place] [address] [address], [place], [phone], Progress Notes * HEATHER MULLINSDOB:1955 (69 yo M)Acc No.[id number]:01/02/2025 Progress Notes Patient: HEATHER GRANDE Provider: Kaylie Brandt MD :1955 A ge:69 Y S ex:Male Date:01/02/2025 Address: [address], [place] , [id number] Subjective: * Chief Complaints: * W orsening [...] to bring issues. 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 Questions H ave you had any new [...] a daughter Radha. He was born in [place], [place] and has been in [place] for 34 years. He is retired. He [...] your next appointment,PLEASE FAX COMPLETED RESULTS TO [phone] * Lab:[facility] * Collection Date 11/15/2024 [...] Has occasional heartburn is well controlled with xogi-uod-mcgrdzi medications. 6 . H yperlipemia - E78.5 [...] Orally, Once a day. Referral To:[facility] Orthopedic Surgery Reason:Evaluate and Treat Left Should Pain Referral To:[facility] Reason:Evaluate and Treat Bilateral Foot pain * Immunizations: Influenza Vaccine Afluria : 0.5 mL (Dose No:1) (Route: Intramuscular) given by Navid Rahman on Right Arm (Encounter for immunization) ???Immunization record has been reviewed and updated. * Procedure Codes: 9 0674 CCIIV4 VAC NO PRSV 0.5 ML [id number] FLU VACC 4 MARGY 3 YRS PLUS [...] MD Date: Generated for Altoni luis/Rissa/eTransmitting on: 03/25/2024 10:52 AM EST History and Physical [...] Referred Provider Not es 01/02/2025 Blu Brandt , [facility] Surgeons Evaluate and Treat Left Should Pain 01/02/2025 Blu Brandt [facility] [place], [facility] aluate and Treat Bilateral Foot pain
[2025-01-23 10:34] VITALS: BMI 25.4
--- NOTE | 2025-01-23 10:34 | A.OFFVIS_ITS ---
Vital Signs 01/23/25 10:34 Height 5 ft 9 in Weight 172 lb BMI 25.4 Intake Visit Reasons: Bilateral Foot Pain Intake Note: Deyvi is a 69 year old male who presents today as a new patient for an evaluation of his bilateral foot pain. Patient reports he is currently experiencing pain in his left heel at this time. He states he was walking down the stairs and after missing the last step he hit his heel and has had pain since and this occurred on 11/03/24. Patient has taken ibuprofen for the pain and has found slight relief for his symptoms. Allergies No Known Allergies Allergy (Verified 10/17/20 11:29) Medication List - Last Reconciled 01/23/25 by Karrie Malloy DPM aspirin 81 mg PO DAILY cyclobenzaprine 10 mg PO TID hydrochlorothiazide 1 cap PO QAM losartan 1 tab PO DAILY methylprednisolone (Medrol (Jeronimo)) PO PER PKG DIR naproxen 500 mg PO BID PRN 10 days omega 8-lzg-jsk-fish oil 1,000 (120-180) mg (Fish Oil) 1 cap PO BID sildenafil (pulm.hypertension) 20 mg PO DAILY simvastatin 1 tab PO QPM HPI Comments Details: The patient is a 69-year-old male with a PMH as seen below presenting with left foot pain. The patient reports that the pain is located on the medial and lateral aspects of the heel that sometimes radiates towards the arch of the foot. He states he experiences a sharp sensation and the pain is exacerbated by walking. He states the pain is constant with activity and relieved upon rest. The patient has been taking ibuprofen for pain management, which provides some relief but does not completely alleviate the pain. He states he recently tripped and hit his heel in November and has been experiencing pain since. He denies any other pedal concerns. [facility] Medical History (Updated 01/23/25 @ 10:43 by Karrie Malloy DPM) Calcaneal spur, left Plantar fasciitis of left foot Left foot pain High cholesterol HTN (hypertension) Surgical History Hx of tonsillectomy H/O colonoscopy Social History Alcohol intake: never Patient Tobacco Use Status: Former Tobacco user Review of Systems Const Details: - Musculoskeletal: Reports sharp pain in the left heel extending towards the arch of the foot, exacerbated by walking. All systems reviewed & are unremarkable except as noted in HPI and below Physical Exam Vital Signs: BMI result Body Mass Index 25.4 Extrem Other: LLE Focused Physical Exam: Derm: No open lesions, abrasions, or wounds noted. No ecchymosis or discoloration noted. No maceration or hyperkeratotic areas noted. Skin supple and turgor WNL. Vasc: DP/PT pulses palpable. CFT < 3 secs. Temp gradient warm to warm. Pedal hair diminished. Varicosities noted. No edema noted. Neuro: Protective sensations grossly intact. MSK: Pain on palpation to the heel in the medial and lateral calcaneal tubercles. Pain on palpation to the medial arch of the foot. Negative windlass mechanism. ROM of the forefoot, hindfoot, and ankle WNL. No other gross abnormalities noted. Results Reviewed Results Reviewed: Ordered left foot weightbearing 3 view xrays to be performed prior to next visit. Assessment & Plan Assessment & Plan (1) Left foot pain: Code(s): M79.672 - Pain in left foot Category: Medical (2) Plantar fasciitis of left foot: Code(s): M72.2 - Plantar fascial fibromatosis Category: Medical (3) Calcaneal spur, left: Code(s): M77.32 - Calcaneal spur, left foot Category: Medical Plan Patient was informed and verbally consented to the use of an ambient scribe for clinic note documentation during this visit. I discussed with the patient that the likely diagnosis is plantar fasciitis, which involves inflammation and pain of the plantar fascia ligament. We talked about the management options, including the use of a Medrol Dosepak to reduce inflammation and pain. I explained the importance of stretching exercises to alleviate symptoms and ordered x-rays to check for bone spurs. We also discussed the potential use of a night splint and the possibility of physical therapy or cortisone injections if the symptoms do not improve. I advised the patient to follow up in three weeks to assess the effectiveness of the treatment plan. - Prescribed a Medrol Dosepak to reduce inflammation and pain. - Recommended stretching exercises to alleviate tension on the plantar fascia and improve symptoms. Provided patient with instructional form. - Ordered left foot xrays to be performed prior to next visit. - Advised patient to wear supportive shoe gear and avoid barefoot walking. - Discussed the possibility of using a night splint if symptoms persist after medication and exercises. - Consideration of physical therapy and possible cortisone injection if symptoms do not improve. RTC in 3 weeks. Orders: Orders XR foot LT min 3V 01/23/25 M79.672 - Pain in left foot Medications: New methylprednisolone (Medrol (Jeronimo)) PO PER PKG DIR 21 ea 0RF M72.2 - Plantar fascial fibromatosis, M77.32 - Calcaneal spur, left foot, M79.672 - Pain in left foot Coding Level of Care Code New Pt Level 4 (71842) Diagnoses Left foot pain M79.672 Plantar fasciitis of left foot M72.2 Calcaneal spur, left M77.32 Time Spent (min) 49
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
--- OUTSIDE RECORDS SUMMARY | 2025-01-23 10:53 | XMS_ITS | Patient Health Record ---
Author Organization [facility] Address [address] [place] [address] Care Team Providers Care Advertising Job Titles Name Role Phone Blu Brandt MD Primary Care Provider Unavailab Blu Hartman Unavailable [phone] Allergies No Known Allergies Reason For Referral No Information Medications Medication SIG (Take, Route, Frequency, Duration) Notes Start Date End Date Status Simvastatin 40mg Act reynold hydroCHLOROthiazide 12.5 MG Capsule 1 capsule in the morning Orally Once a day; Duration: 30 day(s) Active Fish Oil 1360 MG Capsule 1 capsule Orall y Twice a day Active Losartan Potassium 50-12.5 Active Aspirin 81mg Active Vitamins/Minerals Ac tive Immunizations Vaccine Route Administration Date Status Comme nts Influenza Unknown 01/25/2021 Administered Social History Social History Drugs/Alcohol: Social Info Question Answer Notes Alcohol Screen Did you have a drink containing alcohol in the past year? 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 alcohol Nonsmoker; no alcohol Problems Problem Type SNOMED Code ICD Code Onset Dates Problem Status W/U Status Risk Notes Problem Screening for malignant neoplasm of colon (376967437) Encounter for screening for malignant neoplasm of colon (Z12.11) Active confirmed Problem History of adenomatous polyp of colon (124564217) History of adenomatous polyp of colon (Z86.010) Active confirmed Problem Preprocedural examination (138858707559512) Preprocedural examination (Z01.818) Active confirmed Problem Diverticulosis of colon (009004429) Diverticulosis of colon (K57.30) Active confirmed Plan Of Treatment Pending Test Test Name Order Date Pathology 07/08/2021 Future Test Test Name Order Date COLONOSCOPY 03/06/2013 COLONOSCOPY 06/03/2021 Insurance Providers Payer Name Payer Address Payer Phone Subscriber Number Group Number Insured Name Patient Relationship to Insured Coverage Start Date Coverage End Date [facility] [address] [facility] [place] [phone] [id number] HEATHER MULLINS Self - patient is the insured Medical (General) History Medical History History ICD Code Hypertension Screening colonoscopy 2007--serrated adenomas and tubular adenomas removed Denies ND,DM,CVA,Lung disease,renal dise ase Hyperlipidemia Colonoscopy in 2013--several tubular raimundo nomas removed Surgical History Surgery Date(Month/Year) Tonsillectomy
== END 2025-01-23 10:48 | disposition home or self-care (01) ==
LOC: HO.HPODS 10:16
PROVIDERS: PCP Internal Medicine Medical Oncology; Visit Provider Student in an Organized Health Care Education/Training Program
DX: M79.672 Pain in left foot (principal); M72.2 Plantar fascial fibromatosis; M77.32 Calcaneal spur, left foot
CPT/HCPCS: 99204

== ENCOUNTER 2025-01-30 08:27 | Outpatient (REF) | payer OTHER, SELFPAY ==
--- OUTSIDE RECORDS SUMMARY | 2024-03-28 04:30 | XMS_ITS ---
Author Organization Blu Brandt III, MD Address [address] [place] [address] Care Team Providers Care [employer] Helper Name Role Phone Dr. Blu Brandt III Primary Care Provider [phone] Allergies Allergen (clinical drug ingredient) Drug/Non Drug [...] Date Provider Diagnosis Blu Brandt III, MD [address] [place] [address] [place] [address] 03/28/2024 Blu Brandt BPH (benign prostati c [...] Has occasional heartburn is well controlled with [id number]-oih-eixmtwh medications. 03/28/2024 Essential hypertension (ICD-10 - I10) [...] NANCY TH EVERY DAY IN THE EVENING Losartan [...] Provider Name:Blu Brandt , 05/01/2025 09:15:00 AM, [address] [place] [address] [address], [place], [phone], Provider Name:Blu Brandt , 12/04/2025 02:00:00 PM, [address] [place] [address] [address], [place], [phone], Progress Notes * HEATHER MULLINSDOB:1955 (69 yo M)Acc No.[id number]:03/28/2024 Progress Notes Patient: HEATHER GRANDE Provider: Kaylie Brandt MD :1955 A ge:69 Y S ex:Male Date:03/28/2024 Address: [address], [place] , [id number] Subjective: * Chief Complaints: * F latulenceLeukocytopeniaHyperlipidemiaHypertensionBenign [...] non-user E x-cigarette smoker amount unknown H iens has a daughter Radha. He was born in [place], [place] and has been in [place] for 34 years. He is retired. He [...] Has occasional heartburn is well controlled with yvvb-sww-crxhnaf medications. 6 . E ssential hypertension - [...] 0 03/28/2024 Generated for Tali smith/Rissa/Tyleritting on: 04/01/2024 08:31 AM EST History and Physical Notes * [...]
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
--- OUTSIDE RECORDS SUMMARY | 2024-05-23 05:15 | XMS_ITS ---
Author Organization Blu Brandt III, MD Address [address] [place] [address] Care Team Providers Care Engineer Operations And Maintenance Name Role Phone Dr. Blu Brandt III Primary Care Provider [phone] Allergies Allergen (clinical drug ingredient) Drug/Non Drug Allergy documented on EMR Reaction Allergy Type Onset Date Status No Known Drug Allergy Unknown Drug Allergy Active REASON FOR VISIT Resolved infection right upper eyelid, Chronic leukopenia, Hypertension, Benign prostatic hypertrophy, Acute blepharitis oka he does work daily Medications Medication SIG (Take, Route, Frequency, Duration) Notes Start Date End Date Status Fish Oil 1000 MG 1 capsule Orally Onc e a day Active Ibuprofen 200 MG 2 tablets with food or milk as needed Orally Three times a day as needed 12/08/2022 Active Doxycycline Hyclate 100 MG 1 tablet Oral ly twice a day 05/14/2024 Active Cyclobenzaprine HCl 10 MG 1 tablet [...] EVERY DAY Orally Once a day Active Social History Tobacco Use: Social History Observation Description Date Details (start date - stop date) Former Smoker NA - NA Sex Assigned At : Social History Observation Description Sex Assigned At Male Tobacco Control (Standard) Question Answer Notes Tobacco use: Former smoker How long has it been since you last smoked? Grea ter than 10 years Additional Findings: Tobacco non-user Ex-cigaret te smoker amount unknown Vital Signs Height 68 in 05/23/2024 Weight 175 lbs 05/23/2024 BMI 26.61 kg/m2 05/23/2024 Encounters Encounter Location Date Provider Diagnosis Blu Brandt III, MD [address] [place] [address] [place] [address] 05/23/2024 Blu Brandt BPH (benign prostati c hyperplasia) N40.0 ; Acute blepharitis H01.009 ; Overweight (BMI 25.0-29.9) E66.3 and Former smoker Z87.891 Assessments Encounter Date Diagnosis (ICD Code) Assessment Notes Treatment Notes Treatment Clinical Notes 05/23/2024 BPH (benign prostatic hyperplasia) (ICD-10 - N40.0) He arises from sleep once a night to urinate. We have discussed lifestyle modification as a way to reduce nocturia. 05/23/2024 Acute blepharitis (ICD-10 - H01.009) He has been using hot packs. He has completed the antibiotic course. He reports that the eye has returned to normal and no longer bothers him. He will come back to the office immediately if this recurs. 05/23/2024 Overweight (BMI 25.0-29.9) (ICD-10 - E66.3) He weighs 179 pounds and has a body mass index of 27. We discussed a weight loss strategy that will lose weight at a rate of one half of a pound per week. 05/23/2024 Former smoker (ICD-10 - Z87.891) He is highly motivated not to smoke. He has a plan to prevent relapse in times of stress or illness. Plan Of Treatment Medication Medication Name Sig Start Date Stop Date Notes Fish Oil 1000 MG 1 capsule Orally Once a day Ibuprofen 200 MG 2 tablets with food or milk as needed Orally Three times a day as needed 12/08/2022 Doxycycline Hyclate 100 MG 1 tablet Orally twice a day 02/2025 Cyclobenzaprine HCl 10 MG 1 tablet at [...] MOUTH EVERY DAY Orally Once a day Next Appt Details Provider Name:Blu Brandt , 05/01/2025 09:15:00 AM, [address] [place] [address] [address], [place], [address], Provider Name:Blu Brandt , 12/04/2025 02:00:00 PM, [address] [place] [address] [address], [place], [address], Progress Notes * HEATHER MULLINSDOB:1955 (69 yo M)Acc No.[id number]:05/23/2024 Patient: HEATHER GRANDE Provider: Kaylie Brandt MD :1955 A ge:69 Y S ex:Male Date:05/23/2024 Address: [address], [facility], [id number] Subjective: * Chief Complaints: * R esolved infection right upper eyelidChronic leukopeniaHypertensionBenign prostatic hypertrophyAcute blepharitis oka he does work daily * HPI: * : This telehealth visit took place over 15 minutes with the patient at home and me in my office. He gave consent for billing. This is a follow-up for the results of treatment of an acute infection of the right upper eyelid approximately a week ago.? The eyelid was red and swollen and painful. The orbit itself was not affected. He reports that the erythema and edema and pain have all completely resolved. He states that he took the antibiotic as directed. He says he is back to normal functioning. He will be seen back in the office on the previous schedule and will return at once if this infection recurs. Telehealth L ocation of provider rendering services: { ...} [address] [facility] [address] L ocation of patient: yamini ddress listed in demographics for today's visit P atient identification confirmed using: GRACIA Ceballos ame T elehealth method: T elephone only. Patient not visible to care provider. C onsent: P atient verbally consented to treatment, Patient verbally consented to billing insurance company, Patient informed of any privacy concerns related to method of visit T otal time spent with patient (mins) 1 5 * ROS: G eneral/Constitutional: pain o nly normal aches and pains. C hills d enies.?Fatigue a dmits. F ever d enies. E NT: Decreased hearing d enies. R espiratory: Cough d enies. C ardiovascular: Chest pain with exertion d enies. D yspnea on exertion?denies. S hortness of breath d enies. G astrointestinal: Constipation o ccasional. D ecreased appetite d enies. D iarrhea d enies. H eartburn o ccasional. N [...] Social History: T obacco Use: T obacco Control (Standard) T obacco use: F ormer smoker H ow long has it been since you last smoked??Greater than 10 years A dditional Findings: Tobacco non-user E x-cigarette smoker amount unknown H ines has a daughter Radha. He was born in [place], [place] and has been in [place] for 34 years. He is retired. He [...] as needed Orally three times a day Doxycycline Hyclate 100 MG Tablet 1 tablet Orally twice a day , stop date 05/24/2024Medication List reviewed and reconciled with the patientTaking [...] needed Orally three times a day Taking Doxycycline Hyclate 100 MG Tablet 1 tablet Orally twice a day , stop date 05/24/2024Medication List reviewed and reconciled with the patient * Allergies: N o Known Drug Allergyno[Allergies Verified] Objective: * Vitals: H t: 68, Wt:175, BMI:26.61, Ht-cm: 172.72, Wt-k.38. Assessment: * Assessment: 1. A cute blepharitis - H01.009 (Primary) N otes :He has been using hot packs. He has completed the antibiotic course. He reports that the eye has returned to normal and no longer bothers him. He will come back to the office immediately if this recurs. 2 . B PH (benign prostatic hyperplasia) - N40.0 N otes :He arises from sleep once a night to urinate. We have discussed lifestyle modification as a way to reduce nocturia. 3 . O verweight (BMI 25.0-29.9) - E66.3 N otes :He weighs 179 pounds and has a body mass index of 27. We discussed a weight loss strategy that will lose weight at a rate of one half of a pound per week. 4 . F abdelrahman smoker - Z87.891 N otes :He is highly motivated not to smoke. He has a plan to prevent relapse in times of stress or illness. Plan: * Treatment: 2. O thers Continue [...] tobacco use and urged to quit. 0 05/23/2024 * Images: * Sign off status: Completed true * Provider: Kaylie Brandt MD Date: 0 05/23/2024 Generated for Tali smith/Rissa/Bernadette on: 1 04/01/2024 08:30 AM EST History and Physical Notes * HPI (History of Present Illness) Category Sub-Category Detail Notes Telehealth Location of [facility] rendering services:: {...} [address] [facility] [address] Location of patient:: address listed in demographics for today's visit Patient identification confirmed using:: Name, Telehealth method:: Telephone only. Linnea ent not visible to care provider. Consent:: Patient verbally c onsented to treatment, Patient verbally consented to billing insurance company, Patient informed of any privacy concerns related to method of visit Total time spent with patient (mins): 15
--- OUTSIDE RECORDS SUMMARY | 2024-08-29 05:00 | XMS_ITS ---
Author Organization Blu Brandt III, MD Address 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 Blu Brandt III [...] Provider Speciality Internal M edicine Referred Provider [facility] [place], & [facility] ([place]) Referred Provider Specialty Dermatology General Notes Emely [...] Problem Status W/U Status Risk Notes Problem [id number] Folliculitis (L73.9) Active confirmed A second dermatological [...] Date Provider Diagnosis Blu Brandt III, MD [address] [place] [place] [address] [place] [address] 08/29/2024 Blu Brandt BPH (benign prostati c [...] Has occasional heartburn is well controlled with nxef-cze-shnfkbv medications. 08/29/2024 Benign cyst of left kidney [...] and Treat Scalp Folliculitis[facility] Next Appt Details Follow Up: As Scheduled, Marisabel son: Annual Exam Provider Name:Blu Larane , 05/01/2025 09:15:00 AM, [address] [facility] [address], [place], [phone], Provider Name:Blu Morris Rikki , 12/04/2025 02:00:00 PM, [address] [facility] [address], [place], [address], Progress Notes * HEATHER MULLINSDOB:1955 (69 yo M)Acc No.[id number]:08/29/2024 Progress Notes Patient: HEATHER GRANDE Provider: Kaylie Brandt MD :1955 A ge:69 Y S ex:Male Date:08/29/2024 Address:[address] [place] [address] , [id number] Subjective: * Chief Complaints: * F olliculitis of scalpLeukopeniaHyperlipidemiaHypertensionBenign prostatic hypertrophy * HPI: C OVID-19 Screening: In the past he complained of infection in his scalp and diffuse folliculitis was noted with areas of swelling. He was referred to dermatology. They have tried oral antibiotics and creams but he still has the problem. He is requesting a referral to another automation controls specialist for a second opinion. We have arranged [...] a daughter Radha. He was born in [place], [place] and has been in [place] for 34 years. He is retired. He [...] Has occasional heartburn is well controlled with bqvg-bir-pbstvex medications. 7 . B enign cyst of [...] 0 08/29/2024 Generated for Tali smith/Rissa/Tyleritting on: 04/01/2024 08:29 AM EST History and Physical Notes * [...] [facility] Evaluate and Treat Scalp Folliculitis
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
--- OUTSIDE RECORDS SUMMARY | 2024-11-10 08:18 | XMS_ITS ---
Author Organization Blu Brandt III, MD Address [address] [place] [address] Care Team Providers Care Construction Framer Name Role Phone Dr. Blu Brandt III Primary Care Provider [phone] REASON FOR VISIT Message Social History Sex Assigned At : Social History Observation Description Sex Assigned At Male Encounters Encounter Location Date Provider Diagnosis Blu Brandt III, MD [address] [place] [address] [place] [address] 11/10/2024 Blu Brandt Plan Of Treatment Next Appt Details Provider Name:Blu Brandt , 05/01/2025 09:15:00 AM, [address] [place] [address] [place], [address], Provider Name:Blu Brandt , 12/04/2025 02:00:00 PM, [address] [place] [address] [place], [address], Progress Notes * HEATHER MULLINSDOB:1955 (69 yo M)Acc No.[id number]:11/10/2024 Patient: HEATHER GRANDE :1955 A ge:69 Y S ex:Male Address:[address] [place], [address] * true * Date: Generated for Printi ng/Faxing/eTransmitting on: 04/01/2024 08:31 AM EST
--- OUTSIDE RECORDS SUMMARY | 2024-11-10 09:06 | XMS_ITS ---
Author Organization Blu Brandt III, MD Address [address] [place] [address] [place] [address] Care Team Providers Care Boat Laborer Name Role Phone Dr. Blu Brandt III Primary Care Provider Medications Medication SIG (Take, Route, Fr equency, Duration) Notes Start Date End Date Status Meloxicam 15 MG 1 tablet Orally Once a day for 30 days 11/10/2024 03/09/2025 Active Social History Sex Assigned At : Social History Observation Description Sex Assigned At Male Encounters Encounter Location Date Provider Diagnosis Blu Brandt III, MD [address] [place] [address] [place] [address] 11/10/2024 Blu Brandt Plan Of Treatment Medication Medication Name Sig Start Date Stop Date Notes Meloxicam 15 MG 1 tablet Orally Once a day for 30 days 10/202403/09/2025 Next Appt Details Provider Name:Blu Brandt , 05/01/2025 09:15:00 AM, [address] [place] [address] [place], [address], Provider Name:Blu Brandt , 12/04/2025 02:00:00 PM, [address] [place] [address] [place], [address], Progress Notes * HEATHER MULLINSDOB:1955 (69 yo M)Acc No.[id number]:11/10/2024 Patient: Lacey ALBERT HEATHER :1955 A ge:69 Y S ex:Male Address: [address] [place], [address] * Refills Start Meloxicam Tablet, 15 MG, Orally, 30, 1 tablet, Once a day, 30 days, Refills=3 * true * Date: Generated for Tlai smith/Rissa/Bernadette on: 04/01/2024 08:30 AM EST
--- OUTSIDE RECORDS SUMMARY | 2024-12-02 09:30 | XMS_ITS ---
Author Organization Blu Brandt III, MD Address [address] [place] [address] Care Team Providers Care Manager Local Name Role Phone Dr. Blu Brandt III [...] Problem Status W/U Status Risk Notes Problem [id number] Left foot pain (M79.672) Active confirmed He [...] Encounters Encounter Location Date Provider Diagnosis Blu rBandt III, MD [address] [place] [address] [place] [address] 12/02/2024 Blu Brandt BPH (benign prostati c [...] Follow Up: 3 Weeks, Reason: Telehealth Provider Name:lBu Brandt , 05/01/2025 09:15:00 AM, [address] [place] [address] [address], [place], [address], Provider Name:Blu Brandt , 12/04/2025 02:00:00 PM, [address] [place] [address] [address], [place], [address], Progress Notes * HEATHER MULLINSDOB:1955 (69 yo M)Acc No.[id number]:12/02/2024 Progress Notes Patient: HEATHER GRANDE Provider: Kaylie Brandt MD :1955 A ge:69 Y S ex:Male Date:12/02/2024 Address: [address], [place], [id number] Subjective: * Chief Complaints: * A nnual [...] a daughter Radha. He was born in [place], [place] and has been in [place] for 34 years. He is retired. He [...] your next appointment,PLEASE FAX COMPLETED RESULTS TO [phone] * Lab:Prostate Specific Antige n * Collection [...] 12/02/2024 Generated for Tali smith/Rissa/eTransmitting on: 1 04/01/2024 08:30 AM EST History [...]
--- OUTSIDE RECORDS SUMMARY | 2024-12-26 12:15 | XMS_ITS ---
Author Organization Blu Brandt III, MD Address [address] [place] [address] Care Team Providers Care Windchill Administrator Name Role Phone Dr. Blu Brandt III Primary Care Provider [phone] REASON FOR VISIT Follow-up Social History Sex Assigned At : Social History Observation Description Sex Assigned At Male Encounters Encounter Location Date Provider Diagnosis Blu Brandt III, MD [address] [place] [address] [place] [address] 12/26/2024 Blu Brandt Plan Of Treatment Next Appt Details Provider Name:Blu Brandt , 05/01/2025 09:15:00 AM, [address] [place] [address] [place], [address], Provider Name:Blu Brandt , 12/04/2025 02:00:00 PM, [address] [place] [address] [place], [address], Progress Notes * HEATHER MULLINSDOB:1955 (69 yo M)Acc No.[id number]:12/26/2024 Progress Notes Patient: HEATHER GRANDE Provider: Kaylie Brandt MD :1955 A ge:69 Y S ex:Male Date:12/26/2024 Address:[address], [id number] Subjective: * Chief Complaints: * 1 . Follow-up. * Medical History: Objective: * Vitals: Assessment: Plan: * Treatment: * Images: * The named appointment provid er may or may not be the originator of this progress note, and it is not deemed complete until electronically signed by the appointment provider. Sign off status: Pending * Provider: Kaylie Brandt MD Date: Generated for Tali smith/Rissa/Bernadette on: 04/01/2024 08:29 AM EST
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
--- NOTE | ~2025-01-30 | XR_ITS ---
EXAMINATION: XR FOOT, LEFT CLINICAL INFORMATION: M79.672 - Pain in left foot COMPARISON: X-ray 12/01/2016 TECHNIQUE: AP, lateral, and oblique views of the left foot. FINDINGS: Moderate first MTP arthritis. Mild hallux valgus. Mild second MTP arthritis. Linear lucencies in the proximal base of the second proximal phalanx. This of indeterminate age. This may be subacute/chronic; these could have been present on the prior study, but evaluation is limited by difference in positioning/technique. Otherwise, no new acute fracture, dislocation or suspicious bony lesion. Alignment is anatomic. No erosions. Moderate plantar calcaneal spur. Small posterior calcaneal enthesopathy. No abnormal soft tissue calcification. 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 Findings in the proximal base of second proximal phalanx of indeterminate age, could be subacute/chronic. Clinically correlate. Electronically signed by: Keith Valente MD 01/30/2025 04:26 PM KAYLA CABALLERO
--- OUTSIDE RECORDS SUMMARY | 2025-01-30 08:31 | XMS_ITS | Patient Health Record ---
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 alcohol Nonsmoker; no alcohol Problems Problem Type SNOMED Code ICD Code Onset Dates Problem Status W/U Status Risk Notes Problem Screening for malignant neoplasm of colon (854520881) Encounter for screening for malignant neoplasm of colon (Z12.11) Active confirmed Problem History of adenomatous polyp of colon (321167395) History of adenomatous polyp of colon (Z86.010) Active confirmed Problem Preprocedural examination (777555513135645) Preprocedural examination (Z01.818) Active confirmed Problem Diverticulosis of colon (351984558) Diverticulosis of colon (K57.30) Active confirmed Plan Of Treatment Pending Test Test Name Order Date Pathology 07/08/2021 Future Test Test Name Order Date COLONOSCOPY 03/06/2013 COLONOSCOPY 06/03/2021 Insurance Providers Payer Name Payer Address Payer Phone Subscriber Number Group Number Insured Name Patient Relationship to Insured Coverage Start Date Coverage End Date [facility] [address] [facility] [place] [phone] [id number] HEATHER MULLINS Self - patient is the insured Medical (General) History Medical History History ICD Code Hypertension Screening colonoscopy 2007--serrated adenomas and tubular adenomas removed Denies NM,DM,CVA,Lung disease,renal dise ase Hyperlipidemia Colonoscopy in 2013--several tubular raimundo nomas removed Surgical History Surgery Date(Month/Year) Tonsillectomy
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
== END 2025-01-30 08:28 | disposition home or self-care (01) ==
LOC: HO.XRAY 08:27
PROVIDERS: Visit Provider Student in an Organized Health Care Education/Training Program
DX: M79.672 Pain in left foot (principal)
CPT/HCPCS: 73630

== ENCOUNTER → 2025-01-30 08:31 | Outpatient (BNV) | payer OTHER, SELFPAY | PROVIDERS: Visit Provider Radiology Diagnostic Ultrasound | DX: M19.072 Primary osteoarthritis, left ankle and foot (principal) | CPT/HCPCS: 73630 ==